=== PATIENT | male | born 1960 | race Caucasian/White ===

== ENCOUNTER 2021-08-31 10:19 | Outpatient (REF) | payer MEDICARE, SELFPAY ==
[2021-08-31 11:31] LABS: MANUAL DIFF FLAG NO
[2021-08-31 11:47] LABS: Basophils Percent Auto 0.7 % (0-2); Eosinophils Absolute Auto 0.2 X10*3/uL (0.0-0.4); Eosinophils Percent Auto 2.8 % (0-4); Hematocrit 42.3 % (42.0-52.0); Hemoglobin 15.2 g/dl (14.0-18.0); Imm Gran Abs Auto 0.02 X10*3/uL (0.00-0.03); Imm Gran Pct Auto 0.3 % (0.0-0.4); Lymphocytes Absolute Auto 1.9 X10*3/uL (1.2-4.9); Lymphocytes Percent Auto 33.2 % (20-40); Mean Corpuscular HGB Conc 35.9 g/dl (31.0-36.0); Mean Corpuscular Hemoglobin 32.2 pg (27.0-33.0); Mean Corpuscular Volume 89.6 fL (80.0-98.0); Mean Platelet Volume 9.2 fL (9.4-12.4); Monocytes Absolute Auto 0.5 X10*3/uL (0.1-1.2); Neutrophils Absolute Auto 3.2 x10*3/uL (2.0-8.3); Platelet Count 181 X10*3/uL (160-400); Red Blood Count 4.72 X10*6/uL (4.60-5.80); White Blood Count 5.8 X10*3/uL (4.8-10.8)
[2021-08-31 11:47] LABS: Appearance Urine CLEAR; Color Urine YELLOW; Glucose Urine UA NEG (NEG); Leukocyte Esterase Urine NEG (NEG); Nitrite Urine NEG (NEG); PH 5.5 (5.0-8.0); Specific Gravity - Urine >= 1.030 (1.005-1.025); UACC Culture Trigger NO; Urine Blood NEG (NEG); Urine Ketones 5 MG/DL (NEG); Urine Protein 1+ MG/DL (NEG-TRACE)
[2021-08-31 12:05] LABS: Alanine Aminotransferase 31 U/L (0-40); Albumin Level 4.6 g/dL (3.5-5.0); Alkaline Phosphatase 128 U/L (39-117); Anion Gap 17 (12-20); Aspartate Amino Transferase 84 U/L (5-37); Blood Urea Nitrogen 12 mg/dL (9-16); Calcium 9.1 mg/dL (8.4-10.2); Carbon Dioxide 25 mmol/L (22-29); Chloride 103 mmol/L (96-108); Cholesterol 222 mg/dL; Estimated Glomerular Filt Rate > 60; Glucose Fasting 91 mg/dL (60-99); HDL Cholesterol 73 mg/dL; LDL Cholesterol Calculated 83 mg/dl; Potassium 3.8 mmol/L (3.3-5.1); Sodium 141 mmol/L (135-145); Total Protein 8.1 g/dL (6.5-8.0); Triglycerides 331 mg/dL
[2021-08-31 12:29] LABS: Prostate Specific Antigen Scr < 0.05 ng/mL (<0.05-4.0); TSH reflex Free T4 0.79 uIU/mL (0.32-4.0)
[2021-08-31 12:53] LABS: Calcium Oxalate Crystals Urine TRACE /LPF; RBC Urine 0 /HPF (0); WBC Urine 0 /HPF (0-4)
== END 2021-08-31 10:20 | disposition home or self-care (01) ==
LOC: HO.HMGCLDS 10:19
PROVIDERS: PCP Nurse Practitioner Family; Visit Provider Nurse Practitioner Family
DX: Z12.5 Encounter for screening for malignant neoplasm of prostate (principal); I10 Essential (primary) hypertension; F17.200 Nicotine dependence, unspecified, uncomplicated; Z90.79 Acquired absence of other genital organ(s)
CPT/HCPCS: 36415; 80053; 80061; 81001; 84153; 84443; 85025

== ENCOUNTER 2021-09-14 12:46 | Outpatient (REF) | payer MEDICARE, SELFPAY ==
--- NOTE | ~2021-09-14 | XR_ITS ---
EXAMINATION: XR LUMBOSACRAL SPINE CLINICAL INFORMATION: Dorsalgia COMPARISON: None TECHNIQUE: Three views of the lumbosacral spine. FINDINGS: Status post fusion with anterior orthopedic plate and screw and disc spacer at L5-S1. Hardware intact. 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 Mild dextroscoliosis thoracolumbar spine. [id number] multilevel degenerative spondylosis of disc height narrowing and vertebral endplate spurs and facet joint arthrosis. There is no acute osseous acute abnormality. No acute fracture. Heavy vascular calcification of aorta without evidence for aneurysm. XR/XR lumbar spine 2-3V IMPRESSION: No acute osseous abnormality of the spine. Multilevel degenerative spondylosis. Status post fusion L5-S1.
== END 2021-09-14 12:47 | disposition home or self-care (01) ==
LOC: HO.HMGCX 12:46
PROVIDERS: PCP Nurse Practitioner Family; Visit Provider Nurse Practitioner Family
DX: M54.9 Dorsalgia, unspecified (principal); M79.609 Pain in unspecified limb
CPT/HCPCS: 72100

== ENCOUNTER 2021-10-13 08:45 | Outpatient (REF) | payer MEDICARE, SELFPAY ==
--- NOTE | ~2021-10-13 | US_ITS ---
EXAMINATION: US ABDOMEN COMPLETE CLINICAL INFORMATION: Elevated liver enzymes. COMPARISON: None TECHNIQUE: Real-time imaging of the abdominal viscera. FINDINGS: PANCREAS: Normal. ABDOMINAL AORTA: There is evidence of atherosclerotic disease. The abdominal aorta is normal in caliber. INFERIOR VENA CAVA: Visualized portions are normal. LIVER: Normal. The liver is normal in size. The liver contour is normal. Parenchymal echogenicity is normal. No focal hepatic lesion. There is no intrahepatic biliary duct dilatation seen. GALLBLADDER: Normal. The gallbladder is physiologically distended without evidence of stones, sludge, polyps, wall thickening or pericholecystic fluid. COMMON BILE DUCT: Normal in caliber measuring 0.6 cm in diameter. RIGHT KIDNEY: Normal. No hydronephrosis. No renal calculi or focal parenchymal lesions. The kidney measures 11.7 cm in maximum dimension. LEFT KIDNEY: Normal. No hydronephrosis. No renal calculi or focal parenchymal lesions. The kidney measures 11.5 cm in maximum dimension. SPLEEN: Normal. The spleen measures 8.7 cm in maximum dimension. FREE FLUID: None. US/US abdomen complete IMPRESSION: Unremarkable exam.
[2021-10-13 11:28] LABS: Appearance Urine CLEAR; Color Urine YELLOW; Glucose Urine UA NEG (NEG); Leukocyte Esterase Urine NEG (NEG); Nitrite Urine NEG (NEG); PH 8.5 (5.0-8.0); Urine Blood NEG (NEG); Urine Ketones NEG (NEG); Urine Protein NEG (NEG-TRACE)
[2021-10-13 11:49] LABS: Gamma Glutamyl Transpeptidase 305 U/L (11-51)
[2021-10-13 12:03] LABS: HBc Num1 0.04 S/CO (0.00-0.79); HBsAGNum1 0.19 S/CO (0.00-0.99); Hepatitis B Core Antibody Nonreactive (Nonreactive); Hepatitis B Surface Antigen Negative (Negative); ~HepC Num1 10.33 S/CO (0.00-0.79); ~Hepatitis B Surface Antibody NONREACTIVE (Nonreactive); ~Hepatitis C Antibody Reactive (Nonreactive)
[2021-10-14 08:19] LABS: Hepatitis A Antibody IgM 0.13 Index (0-0.79); ~Hepatitis A Antibody IgM Nonreactive (Nonreactive)
== END 2021-10-13 08:46 | disposition home or self-care (01) ==
LOC: HO.HMGCX 08:45
PROVIDERS: PCP Nurse Practitioner Family; Visit Provider Nurse Practitioner Family
DX: R74.8 Abnormal levels of other serum enzymes (principal); I10 Essential (primary) hypertension
CPT/HCPCS: 36415; 76700; 81003; 82977; 86704; 86706; 86709; 86803; 87340

== ENCOUNTER 2021-10-22 14:16 | Outpatient (REF) | payer MEDICARE, SELFPAY ==
[2021-10-25 14:31] LABS: HCV Log PCR <1.18 NOT DETECTED Log IU/mL (NOT DETECTED); HepC Viral Load <15 NOT DETECTED IU/mL (NOT DETECTED)
== END 2021-10-22 14:17 | disposition home or self-care (01) ==
LOC: HO.HMGCLDS 14:16
PROVIDERS: PCP Nurse Practitioner Family; Visit Provider Nurse Practitioner Family
DX: B19.20 Unspecified viral hepatitis C without hepatic coma (principal)
CPT/HCPCS: 36415; 87522

== ENCOUNTER 2022-04-12 08:22 | Outpatient (REF) | payer MEDICARE, SELFPAY ==
[2022-04-12 11:20] LABS: MANUAL DIFF FLAG NO
[2022-04-12 11:36] LABS: Basophils Percent Auto 0.7 % (0-2); Eosinophils Absolute Auto 0.2 X10*3/uL (0.0-0.4); Hematocrit 37.1 % (42.0-52.0); Hemoglobin 12.4 g/dl (14.0-18.0); Imm Gran Abs Auto 0.02 X10*3/uL (0.00-0.03); Imm Gran Pct Auto 0.4 % (0.0-0.4); Lymphocytes Absolute Auto 1.5 X10*3/uL (1.2-4.9); Lymphocytes Percent Auto 34.4 % (20-40); Mean Corpuscular HGB Conc 33.4 g/dl (31.0-36.0); Mean Corpuscular Hemoglobin 31.8 pg (27.0-33.0); Mean Corpuscular Volume 95.1 fL (80.0-98.0); Mean Platelet Volume 9.9 fL (9.4-12.4); Monocytes Absolute Auto 0.5 X10*3/uL (0.1-1.2); Monocytes Percent Auto 11.6 % (2-11); Neutrophils Absolute Auto 2.2 x10*3/uL (2.0-8.3); Neutrophils Percent Auto 48.9 % (45-73); Platelet Count 160 X10*3/uL (160-400); Red Cell Distribution Width 13.2 % (11.0-16.0); White Blood Count 4.5 X10*3/uL (4.8-10.8)
[2022-04-12 12:13] LABS: Appearance Urine Turbid; Color Urine Dark Yellow; Glucose Urine UA Negative (Negative); Leukocyte Esterase Urine Trace (Negative); Nitrite Urine Negative (Negative); PH 5.5 (5.0-9.0); Specific Gravity - Urine >= 1.030 (1.005-1.025); UMIC TRIGGER UACC YES; Urine Blood Negative (Negative); Urine Ketones Trace mg/dL (Negative); Urine Protein Trace mg/dL (Neg-Trace)
[2022-04-12 12:21] LABS: Alanine Aminotransferase 20 U/L (0-40); Albumin Level 4.1 g/dL (3.5-5.0); Alkaline Phosphatase 139 U/L (39-117); Anion Gap 15 (12-20); Aspartate Amino Transferase 29 U/L (5-37); Bacteria Urine None Seen (None Seen); Bilirubin Total 0.6 mg/dL (0.0-1.0); Blood Urea Nitrogen 11 mg/dL (9-16); Calcium 9.4 mg/dL (8.4-10.2); Carbon Dioxide 29 mmol/L (22-29); Chloride 105 mmol/L (96-108); Cholesterol 153 mg/dL; Estimated Glomerular Filt Rate > 60; Glucose Fasting 106 mg/dL (60-99); HDL Cholesterol 74 mg/dL; Hyaline Casts Urine 0-2 /LPF (0-2); LDL Cholesterol Calculated 67 mg/dl; Potassium 4.5 mmol/L (3.3-5.1); RBC Urine 0-2 /HPF (0-2); Sodium 144 mmol/L (135-145); Squamous Epithelial Cell Urine 0-2 /HPF (0-2); TSH reflex Free T4 0.32 uIU/mL (0.32-4.0); Total Protein 7.2 g/dL (6.5-8.0); Triglycerides 64 mg/dL; WBC Urine 0-5 /HPF (0-5)
== END 2022-04-12 08:23 | disposition home or self-care (01) ==
LOC: HO.HMGCLDS 08:22
PROVIDERS: PCP Nurse Practitioner Family; Visit Provider Nurse Practitioner Family
DX: I10 Essential (primary) hypertension (principal)
CPT/HCPCS: 36415; 80053; 80061; 81001; 81003; 84443; 85025

== ENCOUNTER → 2022-05-12 08:55 | Outpatient (BNVA) | payer MEDICARE, SELFPAY | PROVIDERS: PCP Nurse Practitioner Family; Visit Provider Orthopaedic Surgery | DX: M72.0 Palmar fascial fibromatosis [Dupuytren] (principal) | CPT/HCPCS: 99202 ==

== ENCOUNTER 2022-05-12 11:38 | Outpatient (REF) | payer MEDICARE, SELFPAY ==
[2022-05-12 12:25] LABS: MANUAL DIFF FLAG NO
[2022-05-12 13:49] LABS: Basophils Absolute Auto 0.1 X10*3/uL (0.0-0.2); Basophils Percent Auto 0.9 % (0-2); Eosinophils Absolute Auto 0.1 X10*3/uL (0.0-0.4); Eosinophils Percent Auto 2.2 % (0-4); Hematocrit 39.9 % (42.0-52.0); Hemoglobin 12.9 g/dl (14.0-18.0); Imm Gran Abs Auto 0.01 X10*3/uL (0.00-0.03); Imm Gran Pct Auto 0.2 % (0.0-0.4); Immature Retic Fraction 11.1 % (2.3-13.4); Lymphocytes Absolute Auto 1.8 X10*3/uL (1.2-4.9); Lymphocytes Percent Auto 32.9 % (20-40); Mean Corpuscular HGB Conc 32.3 g/dl (31.0-36.0); Mean Corpuscular Hemoglobin 30.7 pg (27.0-33.0); Mean Platelet Volume 10.7 fL (9.4-12.4); Monocytes Absolute Auto 0.5 X10*3/uL (0.1-1.2); Monocytes Percent Auto 8.6 % (2-11); Neutrophils Percent Auto 55.2 % (45-73); Platelet Count 212 X10*3/uL (160-400); Red Cell Distribution Width 12.4 % (11.0-16.0); Retic HGB Equivalent 34.7 pg (30.0-35.0); Reticulocyte Percent 1.6 % (0.5-1.8); Reticulocytes Absolute 0.066 X10*6/uL (0.026-0.095); White Blood Count 5.4 X10*3/uL (4.8-10.8)
[2022-05-12 14:16] LABS: Gamma Glutamyl Transpeptidase 79 U/L (11-51); Iron 86 mcg/dL (45-160); Percent Iron Saturation 28 % (15-50); Total Iron Binding Capacity 308 mcg/dL (228-428); Unsaturated Iron Binding 222 ug/dL
[2022-05-12 14:49] LABS: Ferritin 78 ng/mL (20-250); Folate 13.2 ng/mL (> or = 4.0); Vitamin B12 347 pg/mL (200-900)
[2022-05-19 20:48] LABS: Alk.Phos Iso. Macrohepatic 0 % (<=0); Alk.Phos Isoenzymes Bone 41 % (28-66); Alk.Phos Isoenzymes Intest 22 % (1-24); Alk.Phos Isoenzymes Liver 37 % (25-69); Alk.Phos Isoenzymes Placental 0 % (<=0); Alk.Phos Isoenzymes Total 70 U/L (35-144)
== END 2022-05-12 11:39 | disposition home or self-care (01) ==
LOC: HO.HMGCLDS 11:38
PROVIDERS: PCP Nurse Practitioner Family; Visit Provider Nurse Practitioner Family
DX: D64.9 Anemia, unspecified (principal); R74.8 Abnormal levels of other serum enzymes
CPT/HCPCS: 36415; 82607; 82728; 82746; 82977; 83540; 84080; 85025; 85045

== ENCOUNTER → 2022-05-28 11:23 | Outpatient (BNVA) | payer MEDICARE, SELFPAY | PROVIDERS: PCP Nurse Practitioner Family; Visit Provider Physician Assistant | DX: S60.10XA Contusion of unspecified finger with damage to nail, initial encounter (principal) | CPT/HCPCS: 99212 ==

== ENCOUNTER 2022-05-31 06:05 | Day surgery (SDC) | payer MEDICARE, SELFPAY ==
[2022-05-25 15:27] VITALS: BMI 21.4
[2022-05-31] VITALS (7 sets, daily range): BP systolic 102–119; BP diastolic 58–77; PULSE 60–79; RESP 16; TEMP 36.5–37.2; O2SAT 90–96
[2022-05-31] MEDS: Lactated Ringers 1,000 ML 80 ML IVCONT (06:52)
--- NOTE | 2022-05-31 07:20 | HO.ANESPROP2 ---
HPI - Anesthesia Eval Consult details Narrative: dupuytrens PMFSH Active Problems Active Problems: All Active Problems (Updated 05/28/22 @ 12:14 by Ginny Castillo PA-C) Subungual hematoma of finger of left hand (Acute) HTN (hypertension) (Acute) Smoker (Acute) Elevated alkaline phosphatase level (Acute) Elevated liver enzymes (Acute) Pain of back and lower extremity (Acute) Hepatitis C (Acute) ETOH abuse (Acute) Anemia (Acute) Dupuytren contracture (Acute) Dupuytren's contracture of right hand (Acute) Dupuytren's contracture of left hand (Acute) H/O prostatectomy (Acute) Past Medical History Medical History Alcoholic peripheral neuropathy Elevated cholesterol Fusion of lumbar spine Hepatitis C HTN (hypertension) Mild ascending aorta dilatation Family History Family history of problems with anesthesia: No Surgical History Surgical History H/O prostatectomy History of lumbar fusion History of Problems with Anesthesia: No Social History Social History Housing: House Patient Tobacco Use Status: Never used Tobacco Cigarette Packs Per Day: 1 Cigarettes Per Day: 20 e-Cigarette/Vaping Use: Never Used Second Hand Smoke Exposure: No Use of substances other than those prescribed or required for medical reasons: Yes Substance Use Frequency: Daily Are you DNR?: No Advance Directives: No Advance Directives Information Provided: Yes Advance Directives on File: No service: No Current occupational status: retired Hearing needs: Yes (hearing aides ) Vision needs: Yes (pt wears glasses ) Meds Allergies Allergy/AdvReac Type Severity Reaction Status Date / Time No Known Allergies Allergy Verified 05/28/22 11:33 Active Medications: Current Medications Lidocaine HCl 8.11 ml/Epinephrine 0.08 mg/ Sodium Bicarbonate 0.405 meq/ IV Miscellaneous Supplies 9 mls @ 0 mls/hr INFILTRATI ONCE ONE Stop: 05/31/22 10:29 Lactated Ringer's (Lr) 1,000 mls @ 80 mls/hr IVCONT .[id number] ESTELLE Last Admin: 05/31/22 06:52 Dose: 80 mls/hr Home Medications Medication Instructions Recorded Confirmed Last Taken Type fluticasone propionate 50 1 spray intranasal DAILY PRN Nasal 05/28/21 05/25/22 Unknown History mcg/actuation nasal Congestion spray,suspension (Flonase Allergy Relief) magnesium citrate (Citrate of 150 ml PO DAILY 05/12/22 Unknown History Magnesia oral) Exam Exam Date and Time: May 31, 2022 0720 Height,Weight and Vital Signs: Height 6 ft 3 in Weight 77.564 kg Last Vital Signs Temp 97.7 F 05/31/22 06:50 Pulse 60 05/31/22 06:50 Resp 16 05/31/22 06:50 BP 119/77 05/31/22 06:50 Pulse Ox 96 05/31/22 06:50 O2 Del Method Room Air 05/31/22 06:50 Airway Mallampati Class: II TM Dist: >3cm Neck ROM: Limited Heart: Qrrr Lungs: cta Assessment and Plan Assessment Anesthesia Assessment: Anesthesia Plan Discussed, Smoking Cess. Discussed and Chart Reviewed Final Anesthetic Review Family History of Problems with Anesthesia: No History of Problems with Anesthesia: No NPO: Yes ASA Class: III Final Preanesthetic Review: No Changes in Pt Med Stat, Meds/Allgs Chart Reviewed, Consent Obtained/Reviewed and Anes Risks/Benef Reviewed Patient Risk: Intermediate Procedure Risk: Low Anesthetic Plan Anesthetic Plan: GA and Regional Block Disposition: Standard PACU
--- NOTE | 2022-05-31 08:04 | P.OP_ITS ---
Operative Note Operative Note Date of Service: 05/31/22 Narrative: Preop diagnosis: 1. right small finger Dupuytren's contracture 2. Right ring finger Dupuytren's contracture Postop diagnosis: Same Procedure: 1. Right small finger Partial Dupuytren's fasciectomy 2. Right ring finger partial Dupuytren's fasciectomy 3. Right small finger radial digital nerve neurolysis 4. Right small finger ulnar digital nerve neurolysis 5. Right ring finger ulnar digital nerve neurolysis Surgeon: Taryn Cornejo MD Anesthesia: General anesthesia plus regional block Findings: Dupuytren's cords extending from the palm to the small finger at about the D IP joint, and in the ring finger to the ulnar aspect of the digit at about the D IP joint. The contractures were corrected to full extension in both the small and ring fingers Implants: None Tourniquet time: tourniquet time #1 123 minutes, tourniquet time #2 of 43 minutes with 25 minutes of down time in between. EBL: 5.0 ml Specimen: Dupuytren's cords from each the right small finger and the right ring finger were sent for histopathology Drains: None Complications: None Disposition: Brought to the recovery room in stable condition Plan: Follow-up in 10-14 days for wound check, suture removal and to check pathology OT appt on day of f/u to make a custom night spint and to begin OT Indications: The patient is a 62 year old man with Dupuytren's contractures involving the right ring and small fingers . The risks and benefits of operative treatment, including but not limited to risk of damage to blood vessels, nerves, tendons, infection, recurrence, persistent pain or numbness, incomplete resolution of preoperative symptoms, or need for further surgery were discussed with the patient and they wished to proceed with surgery. Procedure: Once consent was obtained patient was brought back to the operating suite and placed in the operating table in a supine position. A regional block was performed by the anesthesia team. Perioperative antibiotics and anesthesia was administered by the anesthesia team. A tourniquet was applied to the proximal aspect of the right upper extremity and the limb was prepped and draped in a standard surgical fashion. The limb was elevated exsanguinated with Esmarch bandage and the tourniquet inflated to 250 mm of mercury for a total tourniquet time of 123 minutes plus 43 minutes. I made a Braulio type incision extending along the Dupuytren's cord from the mid palm to the DIP flexion crease of the right small finger. The Incision was made with a 15. Blade through the skin the subcutaneous tissues. I then carefully dissected down to the level of the Dupuytren's cord beginning at the proximal aspect of the incision. This was done using tenotomy and iris scissors. Care was taken to protect the nearby neurovascular structures. The Dupuytren's cord was cut at its proximal aspect using tenotomy scissors. It was then grasped with an Allis clamp. The Dupuytren's cord was then carefully dissected free in a proximal to distal direction using tenotomy scissors and again taking care to protect the nearby neurovascular structures. at about the A1 oriana level the cord divided into 2 cords extending distally. The ulnar cord extended along the ulnar border of the digit to about the D IP flexion crease. The radial cord extended to just past the PIP joint on the radial side of the digit. Great care was taken as a neurolysis was performed for each the ulnar digital nerve and then for the radial digital nerve, dissecting the neurovascular bundles free from each of these Dupuytren's cords. This was pe rformed using tenotomy and iris scissors. The cords were then dissected free from the skin bone and flexor tendon sheath and removed from the digit and placed on the back table to be sent for histopathology. A small finger contracture was corrected to full extension at the MCP PIP and D IP joints. My attention was then turned to the right ring finger contracture. Braulio is incision was made over the A1 oriana area distally to the D IP flexion crease. Care was taken to maintain and skin bridge between that incision in the incision that was made for the small finger. The proximal aspect of the cord was carefully dissected free from the surrounding tissues in the palm using the proximal aspect of the incision that was utilized to access the cord to the small finger. Care was taken to protect the neurovascular structures. The cord was cut free in the palm and an Allis clamp was applied to maintain tension. I then proceeded in a proximal to distal direction freeing up the cord from the surrounding tissues. This progressed beneath the skin bridge in the palm. At this point the tourniquet was deflated at 123 minutes. We allowed for a down time of 25 minutes. During this time the wound was copiously irrigated with normal saline and hemostasis obtained with a brief period of local pressure. The skin edges of the Brunners incision to the small finger were then reapp roximated using 4-0 and 5 0 Prolene suture material. after a 25 minute down time, the limb was elevated and exsanguinated with an Esmarch bandage and the tourniquet reinflated for a 2nd tourniquet time of 43 minutes. This cord primarily ran along the ulnar aspect of the ring finger to the D IP joint. A neurolysis of the ulnar digital nerve was carefully performed, dissecting the Dupuytren's cord from about the digital neurovascular structures and freeing them up in a proximal to distal direction. The ulnar digital nerve and vessel were protected while the rest of the cord was dissected free from the skin, bone and flexor tendon sheath. The cord was then removed and placed on the back table to be sent for histopathology. The ring finger contracture was corrected to full extension at the MCP, PIP and D IP joints. The tourniquet was again deflated and hemostasis obtained with a brief period of local pressure. The wound was copiously irrigated with normal saline. The skin edges were reapproximated with 5-0 Prolene suture. The wounds were infiltrated with some 0.5% plain ropivacaine for postop pain control and a sterile dressing and volar splint holding the small and ring fingers in extension was applied. The patient appears to have tolerated the procedure well and with no complications. All digits were well vascularized conclusion of the case.
--- NOTE | 2022-05-31 08:04 | MHC.SHP ---
Pre-Procedural Eval Section A Date of Service: 05/31/22 The patient is an INPATIENT: No Changes since office visit: No Cold of Flu in the past 2 weeks, No New Medical Problems, No Changes in Medication and No Patient answered all questions The History & Physical has been completed within 30 days and I have reviewed it.: Yes Section B Chief Complaint: Palmar fascial fibromatosis [Dupuytren] Allergies: Allergies Allergy/AdvReac Type Severity Reaction Status Date / Time No Known Allergies Allergy Verified 05/28/22 11:33 Plan I have reviewed the history and physical and performed a pertinent physical examination on my patient. No changes have occurred unless specified. Time Spent With Patient Time: Total time managing care of this patient today ____ minutes.
== END 2022-05-31 15:08 | disposition home or self-care (01) ==
PROVIDERS: PCP Nurse Practitioner Family; Visit Provider Orthopaedic Surgery
PROC: (CPT 26045; principal; 2022-05-31 07:30)
DX: M72.0 Palmar fascial fibromatosis [Dupuytren] (principal); R20.2 Paresthesia of skin; G62.1 Alcoholic polyneuropathy; F10.11 Alcohol abuse, in remission; I10 Essential (primary) hypertension; B19.20 Unspecified viral hepatitis C without hepatic coma; E78.00 Pure hypercholesterolemia, unspecified; Z79.899 Other long term (current) drug therapy; Z87.891 Personal history of nicotine dependence
CPT/HCPCS: 26123; 64702 ×2; 26125; 88304; J0171; J0690; J1100; J2405; J2795

== ENCOUNTER → 2022-06-09 13:45 | Outpatient (BNVA) | payer MEDICARE, SELFPAY | PROVIDERS: PCP Nurse Practitioner Family; Visit Provider Orthopaedic Surgery | DX: M72.0 Palmar fascial fibromatosis [Dupuytren] (principal); R20.0 Anesthesia of skin; S60.112D Contusion of left thumb with damage to nail, subsequent encounter; W22.8XXD Striking against or struck by other objects, subsequent encounter | CPT/HCPCS: 99212 ==

== ENCOUNTER → 2022-06-15 08:26 | Outpatient (BNVA) | payer MEDICARE, SELFPAY | PROVIDERS: PCP Nurse Practitioner Family; Visit Provider Orthopaedic Surgery | DX: Z48.02 Encounter for removal of sutures (principal); M72.0 Palmar fascial fibromatosis [Dupuytren] | CPT/HCPCS: 99212 ==

== ENCOUNTER 2022-06-25 08:00 | Outpatient (RCR) | payer MEDICARE, SELFPAY ==
--- NOTE | 2022-06-09 16:27 | MHC.OT.EP ---
[address] [phone] Occupational Therapy Plan of Care Patient Name: Tonny French Date of Evaluation: 06/09/22 Diagnosis: s/p right small and ring finger Dupuytrens release Pain Location: RIght palm at base of 4th and 5th digit 4/10 Pain Score: 4 Pain Scale Used: Numeric (0 - 10) Aggravating Factors: Has not been using R hand since surgery Alleviating Factors: Rest Assessment: Pt is a 62 y/o male referred to OT s/p right 4th and 5th digit Dupuytren's release on 05/31/22. Pt had sutures removed today, he is healing well and steri strips are in place. Custom digit extension splint was fabricated for night time use. Pt. was educated in indications, wearing schedule and skin checks. He is somewhat concerned about his co-pay and would like to come one time a week. We reviewed tendon glides and digit/hand AROM exercises for home. He demonstrated good understanding of exercises prior to leaving. [employer] strength was not tested this date. A 36.4% limitation is noted per the Quick DASH assessment. Pt would benefit from skilled OT 1x/wk for 4 weeks for ROM, scar management, and return to PLOF. Frequency and Duration: The patient will be seen 1x/wk for 4 weeks Short Term Goals: IND with custom orthosis wear IND with ROM HEP Decrease pain to <2/10 Full composite fist Alf Goals: IND with scar management IND with progression of HEP Pain free w/ BADL's/IADL's Quick DASH <15% Treatment Plan: Therapeutic Exercise Therapeutic Activity Home Exercise Program Splinting Patient Education Edema Control Ultrasound MHP Soft Tissue Mobilization Per patient request, 1x/wk for 4 weeks Electronically Signed By: Shelley Reyes, OTR/L Please Sign and return to therapist. Thank you once again for your referral.
== END 2022-06-29 12:54 | disposition home or self-care (01) ==
LOC: HO.OT 08:00
PROVIDERS: PCP Nurse Practitioner Family; Visit Provider Orthopaedic Surgery
DX: M72.0 Palmar fascial fibromatosis [Dupuytren] (principal)
CPT/HCPCS: 29130; 97110; 97165; 97760

== ENCOUNTER → 2022-06-29 12:05 | Outpatient (BNVA) | payer MEDICARE, SELFPAY | PROVIDERS: PCP Nurse Practitioner Family; Visit Provider Orthopaedic Surgery | DX: M72.0 Palmar fascial fibromatosis [Dupuytren] (principal) | CPT/HCPCS: 99212 ==

== ENCOUNTER 2022-07-10 13:04 | Outpatient (REF) | payer MEDICARE, SELFPAY ==
[2022-07-11 07:38] LABS: FIT Int Ctl YES; FIT1 NEGATIVE (NEGATIVE); FIT2 NEGATIVE (NEGATIVE)
== END 2022-07-10 13:05 | disposition home or self-care (01) ==
LOC: HO.HMGCLNP 13:04
PROVIDERS: PCP Nurse Practitioner Family; Visit Provider Nurse Practitioner Family
DX: D64.9 Anemia, unspecified (principal)
CPT/HCPCS: 82274

== ENCOUNTER 2022-08-06 07:58 | Outpatient (REF) | payer MEDICARE, SELFPAY ==
[2022-08-06 11:24] LABS: MANUAL DIFF FLAG NO
[2022-08-06 11:57] LABS: Basophils Absolute Auto 0.1 X10*3/uL (0.0-0.2); Eosinophils Absolute Auto 0.2 X10*3/uL (0.0-0.4); Eosinophils Percent Auto 3.9 % (0-4); Hematocrit 41.1 % (42.0-52.0); Hemoglobin 13.4 g/dl (14.0-18.0); Imm Gran Abs Auto 0.01 X10*3/uL (0.00-0.03); Imm Gran Pct Auto 0.2 % (0.0-0.4); Immature Retic Fraction 9.6 % (2.3-13.4); Lymphocytes Absolute Auto 1.9 X10*3/uL (1.2-4.9); Lymphocytes Percent Auto 36.3 % (20-40); Mean Corpuscular HGB Conc 32.6 g/dl (31.0-36.0); Mean Corpuscular Hemoglobin 29.7 pg (27.0-33.0); Mean Corpuscular Volume 91.1 fL (80.0-98.0); Mean Platelet Volume 10.2 fL (9.4-12.4); Monocytes Absolute Auto 0.4 X10*3/uL (0.1-1.2); Monocytes Percent Auto 8.5 % (2-11); Neutrophils Absolute Auto 2.6 x10*3/uL (2.0-8.3); Neutrophils Percent Auto 50.1 % (45-73); Platelet Count 222 X10*3/uL (160-400); Red Blood Count 4.51 X10*6/uL (4.60-5.80); Retic HGB Equivalent 35.4 pg (30.0-35.0); Reticulocyte Percent 1.3 % (0.5-1.8); Reticulocytes Absolute 0.057 X10*6/uL (0.026-0.095); White Blood Count 5.2 X10*3/uL (4.8-10.8)
[2022-08-06 11:59] LABS: Appearance Urine Clear; Color Urine Yellow; Glucose Urine UA Negative (Negative); Leukocyte Esterase Urine Negative (Negative); Nitrite Urine Negative (Negative); PH 7.5 (5.0-9.0); Urine Blood Negative (Negative); Urine Ketones Negative (Negative); Urine Protein Negative (Neg-Trace)
[2022-08-06 12:48] LABS: Alanine Aminotransferase 15 U/L (0-40); Albumin Level 4.4 g/dL (3.5-5.0); Alkaline Phosphatase 83 U/L (39-117); Anion Gap 14 (12-20); Aspartate Amino Transferase 20 U/L (5-37); Bilirubin Total 0.5 mg/dL (0.0-1.0); Blood Urea Nitrogen 14 mg/dL (9-16); Calcium 9.5 mg/dL (8.4-10.2); Carbon Dioxide 25 mmol/L (22-29); Chloride 107 mmol/L (96-108); Cholesterol 138 mg/dL; Estimated Glomerular Filt Rate > 60; Glucose Fasting 108 mg/dL (60-99); HDL Cholesterol 48 mg/dL; LDL Cholesterol Calculated 78 mg/dl; Potassium 4.2 mmol/L (3.3-5.1); Sodium 142 mmol/L (135-145); Total Protein 7.4 g/dL (6.5-8.0); Triglycerides 63 mg/dL
[2022-08-06 12:51] LABS: Prostate Specific Antigen Scr < 0.10 ng/mL (<0.05-4.0); TSH reflex Free T4 0.79 uIU/mL (0.32-4.0)
== END 2022-08-06 07:59 | disposition home or self-care (01) ==
LOC: HO.HMGCLDS 07:58
PROVIDERS: PCP Nurse Practitioner Family; Visit Provider Nurse Practitioner Family
DX: Z00.00 Encounter for general adult medical examination without abnormal findings (principal); D64.9 Anemia, unspecified; Z12.5 Encounter for screening for malignant neoplasm of prostate; E78.5 Hyperlipidemia, unspecified
CPT/HCPCS: 36415; 80053; 80061; 81003; 84153; 84443; 85025; 85045

== ENCOUNTER 2022-08-27 15:32 | Outpatient (REF) | payer MEDICARE, SELFPAY ==
--- NOTE | ~2022-08-27 | CT_ITS ---
EXAMINATION: CT LOW-DOSE SCREENING CHEST WITHOUT CONTRAST CLINICAL INFORMATION: History of smoking. COMPARISON: None TECHNIQUE: Multidetector volumetric noncontrast CT imaging of the chest was obtained using low-dose screening CT technique. Axial thin section 0.625 mm reformations in soft tissue and lung windows were obtained. Sagittal and coronal reformations were obtained. Axial MIP images were also created and reviewed. RECONSTRUCTED WIDTH: 1.25 mm x1.[address] examination was performed using dose optimization techniques as appropriate, variously including the following: *Automated exposure control *Adjustment of mA and/or kV according to patient size (this includes techniques or standardized protocols for targeted exams where dose is matched to indication/reason for exam; i.e. extremities or head) *Use of iterative reconstruction technique TOTAL EXAM DLP: 52 mGy-cm. CTDIvol: 1.28 mGy. FINDINGS: PULMONARY NODULES: No suspicious pulmonary nodule appreciated. 7 mm peripheral calcified right lower lobe granuloma (image 372, series 5). LUNGS: No effusion or pneumothorax. Central airways patent. MEDIASTINUM: No mediastinal adenopathy by size criteria. No obvious hilar adenopathy on this noncontrast study. CORONARY ARTERY CALCIFICATION: Moderate to severe. THYROID GLAND: Unremarkable to the extent seen. CARDIOVASCULAR STRUCTURES: Aorta and heart size normal. No pericardial effusion. CHEST WALL/AXILLA: Unremarkable. No evidence of axillary adenopathy by size criteria. UPPER ABDOMEN: Included portions of the solid organs in the upper abdomen appear unremarkable on noncontrast imaging. OSSEOUS STRUCTURES: No lytic or sclerotic bony lesion identified. Pseudarthroses at the posterolateral aspects of the left ninth and 10th ribs. CT/CT lung screening IMPRESSION: No suspicious lung nodule identified. Additional findings, as above. ASSESSMENT: Lung-RADS category 1: Negative RECOMMENDATION: Routine annual low-dose CT screening in 12 months.
== END 2022-08-27 15:33 | disposition home or self-care (01) ==
LOC: HO.CT 15:32
PROVIDERS: PCP Nurse Practitioner Family; Visit Provider Physician Assistant Medical
DX: Z12.2 Encounter for screening for malignant neoplasm of respiratory organs (principal); Z87.891 Personal history of nicotine dependence
CPT/HCPCS: 71271; G0296

== ENCOUNTER 2023-01-11 08:21 | Outpatient (AMB) | payer MEDICARE, SELFPAY ==
--- NOTE | 2023-01-11 08:25 | MHC.PC.OV ---
Vital Signs 01/11/23 08:28 Weight 158 lb BP 108/66 Blood Pressure Location Rt brachial Position Sitting Pulse 53 Pulse Source Pulse Oximeter Pulse Oximetry (%) 99 Oxygen Delivery Method Room Air Intake Visit Reasons: 6 month follow up Allergies No Known Allergies Allergy (Verified 01/11/23 08:28) Medication List - Last Reconciled 01/11/23 by SELENE Small amlodipine 10 mg PO DAILY 90 days atorvastatin 10 mg PO BEDTIME 90 days fluticasone propionate 50 mcg/actuation (Flonase Allergy Relief) 1 spray intranasal DAILY PRN ibuprofen 600 mg PO Q6-8H PRN magnesium citrate (Citrate of Magnesia oral) 150 mL PO DAILY multivitamin (Daily Multi-Vitamin tablet) 1 tab PO DAILY 90 days pregabalin 75 mg PO TID 30 days sertraline 100 mg PO DAILY 90 days sildenafil 50 mg PO DAILY PRN Tobacco use date assessed: 07/13/22 HPI 6 month follow up HPI Details HTN: Blood pressure is stable, managed with amlodipine 10mg. Will order labs. Denies chest pain, shortness of breath, headache, dizziness, and blurred vision. Pt c/o lower back pain. He reports some radicular symptoms to his RLE. Denies any signs of cauda equina. Will order XR. Pt reports weight loss. Pt's weight in July was 180 and today it is 158. Pt reports that he is eating normally but continues to lose weight. Will order labs and chest XR. Pt has a hx of hep C though pt was treated. Pt is a smoker, goes for low-dose CTs. Pt reports having a previous colonoscopy, though unable to find report. Will order cologuard. Pt is going to see a specialist for an oral lesion that was found by his dentist. [facility] Medical History Personal history of nicotine dependence Nicotine dependence, cigarettes, uncomplicated Hepatitis C Elevated cholesterol HTN (hypertension) Mild ascending aorta dilatation Alcoholic peripheral neuropathy Surgical History History of right inguinal hernia repair History of left knee surgery History of surgery on lower extremity History of shoulder surgery History of hand surgery History of prostatectomy History of lumbar fusion Family History Maternal Uncle Substance use disorder Social History Housing: House Patient Tobacco Use Status: Former Tobacco user Quit Date: jan 26 Years Smoked: (onset 23yo, 1ppd x 38yrs, 35pyh - quit 01/2022) e-Cigarette/Vaping Use: Never Used Second Hand Smoke Exposure: No service: No Current occupational status: retired Hearing needs: Yes (hearing aides ) Vision needs: Yes (pt wears glasses ) Questionnaire Thrive Questionnaire Date Thrive assessed: 05/28/21 ARLENE-7 AMB Questionnaire ARLENE-7 Date ARLENE - 7 assessed: 05/28/21 Source: Developed by Drs. Horacio Yoder, Verona Adamson, Sawyer Garay and colleagues, with an educational dasia from [employer]. Review of Systems Const Reports as per HPI Physical exam (Primary Care) Vital Signs: Last Vital Signs Pulse 53 01/11/23 08:28 BP 108/66 01/11/23 08:28 Pulse Ox 99 01/11/23 08:28 Oxygen Delivery Method Room Air 01/11/23 08:28 Tobacco/Smoking Status: Tobacco use Status Tobacco use date assessed 07/13/22 01/11/23 08:31 Patient Tobacco Use Status Former Tobacco user 01/11/23 08:31 e-Cigarette/Vaping Use Never Used 01/11/23 08:31 Thrive Assessment: Date of Thrive Assessment Date Thrive assessed 05/28/21 01/11/23 08:31 Const Other: skinny stature General: cooperative Orientation/consciousness: patient oriented x3 HENMT Other: right bottom of tongue with white lesion Resp Effort & Inspection: normal respiratory effort Auscultation: clear to auscultation bilaterally and diminished lung sounds Cardio Other: difficult to auscultate Rate: regular rate Rhythm: regular rhythm Heart sounds: S1 normal heart sound present and S2 normal heart sound present Back/Spine/Pelvis Other: increase in lower transverse back pain with RLE raises, no radicular symptoms or pain with heel and toe walking Neuro General: patient oriented x3 Psych Appearance: grossly normal Mental Status: mental status grossly normal Speech and movement: Normal speech and movement present Affect: normal affect Attitude: cooperative Thought process: Normal thought process present Thought content: Normal thought content present Insight: Good insight present (Psych) Judgement: Good judgement present (Psych) Assessment and Plan Assessment & Plan (1) HTN (hypertension): Code(s): I10 - Essential (primary) hypertension Plan: Stable, labs ordered (2) Lower back pain: Code(s): M54.50 - Low back pain, unspecified Plan: XR ordered, likely arthritis (3) Screening for colon cancer: Code(s): Z12.11 - Encounter for screening for malignant neoplasm of colon Plan: Cologuard ordered (4) Unintentional weight loss: Code(s): R63.4 - Abnormal weight loss Plan: Labs, chest XR Plan The patient agreed to the use of a biomedical engineering technician for this encounter. Scribed for DANYEL Hdez-BC by Estrellita Mercedes biomedical engineering technician, on 01/11/2023 at 08:40 EST. Orders: Orders XR lumbar spine 2-3V Today M54.50 - Low back pain, unspecified C Reactive Protein Today Z12.11 - Encounter for screening for malignant neoplasm of colon HIV Ab/Ag Today R63.4 - Abnormal weight loss Hepatitis C Viral Load Today R63.4 - Abnormal weight loss Hepatitis A,B,C Profile Today R63.4 - Abnormal weight loss Complete Blood Count Auto Diff Today I10 - Essential (primary) hypertension Comprehensive Cushing. Panel Fast Today I10 - Essential (primary) hypertension Lipid Panel Today I10 - Essential (primary) hypertension TSH reflex Free T4 Today I10 - Essential (primary) hypertension, R63.4 - Abnormal weight loss UA CC w/rflx Micro + Cult Today I10 - Essential (primary) hypertension, R63.4 - Abnormal weight loss Erythrocyte Sedimentation Rate Today R63.4 - Abnormal weight loss Referrals Cologuard Test Z12.11 - Encounter for screening for malignant neoplasm of colon, Z12.12 - Encounter for screening for malignant neoplasm of rectum Coding Level of Care Code Est Pt Level 3 (34788) Diagnoses HTN (hypertension) I10 Lower back pain M54.50 Screening for colon cancer Z12.11 Unintentional weight loss R63.4
[2023-01-11 08:28] VITALS: BP 108/66; PULSE 53; O2SAT 99
== END 2023-01-11 09:11 | disposition home or self-care (01) ==
PROVIDERS: Visit Provider Nurse Practitioner Family
DX: I10 Essential (primary) hypertension (principal); M54.50 Low back pain, unspecified; Z12.11 Encounter for screening for malignant neoplasm of colon; R63.4 Abnormal weight loss
CPT/HCPCS: 99213

== ENCOUNTER 2023-01-11 09:11 | Outpatient (REF) | payer MEDICARE, SELFPAY ==
--- NOTE | ~2023-01-11 | XR_ITS ---
EXAMINATION: XR LUMBOSACRAL SPINE CLINICAL INFORMATION: Low back pain COMPARISON: 08/15/2021 TECHNIQUE: Three views of the lumbosacral spine. FINDINGS: There is no interval change in position of hardware at the level of L5-S1 and mild multilevel degenerative changes with marginal spurring.. There is mild dextroscoliosis. Sacroiliac joints unremarkable. XR/XR lumbar spine 2-3V IMPRESSION: No interval change. Status post L5-S1 fusion
[2023-01-11 11:21] LABS: MANUAL DIFF FLAG NO
[2023-01-11 11:27] LABS: Appearance Urine Clear; Basophils Absolute Auto 0.1 X10*3/uL (0.0-0.2); Basophils Percent Auto 0.9 % (0-2); Color Urine Yellow; Eosinophils Absolute Auto 0.1 X10*3/uL (0.0-0.4); Eosinophils Percent Auto 2.3 % (0-4); Glucose Urine UA Negative (Negative); Hematocrit 43.2 % (42.0-52.0); Hemoglobin 14.4 g/dl (14.0-18.0); Imm Gran Abs Auto 0.01 X10*3/uL (0.00-0.03); Imm Gran Pct Auto 0.2 % (0.0-0.4); Immature Retic Fraction 3.8 % (2.3-13.4); Leukocyte Esterase Urine Negative (Negative); Lymphocytes Absolute Auto 1.6 X10*3/uL (1.2-4.9); Lymphocytes Percent Auto 28.6 % (20-40); Mean Corpuscular HGB Conc 33.3 g/dl (31.0-36.0); Mean Corpuscular Hemoglobin 29.4 pg (27.0-33.0); Mean Corpuscular Volume 88.3 fL (80.0-98.0); Mean Platelet Volume 10.6 fL (9.4-12.4); Monocytes Absolute Auto 0.4 X10*3/uL (0.1-1.2); Monocytes Percent Auto 7.5 % (2-11); Neutrophils Absolute Auto 3.5 x10*3/uL (2.0-8.3); Neutrophils Percent Auto 60.5 % (45-73); Nitrite Urine Negative (Negative); Platelet Count 222 X10*3/uL (160-400); Red Blood Count 4.89 X10*6/uL (4.60-5.80); Red Cell Distribution Width 13.2 % (11.0-16.0); Retic HGB Equivalent 34.4 pg (30.0-35.0); Reticulocyte Percent 0.9 % (0.5-1.8); Reticulocytes Absolute 0.044 X10*6/uL (0.026-0.095); Urine Blood Negative (Negative); Urine Ketones Negative (Negative); Urine Protein Negative (Neg-Trace); White Blood Count 5.7 X10*3/uL (4.8-10.8)
[2023-01-11 12:09] LABS: Alanine Aminotransferase 11 U/L (0-40); Albumin Level 4.5 g/dL (3.5-5.0); Alkaline Phosphatase 85 U/L (39-117); Anion Gap 12 (12-20); Aspartate Amino Transferase 16 U/L (5-37); Bilirubin Total 0.5 mg/dL (0.0-1.0); Blood Urea Nitrogen 15 mg/dL (9-16); C Reactive Protein < 0.04 mg/dL (< or = 0.50); Carbon Dioxide 32 mmol/L (22-29); Chloride 106 mmol/L (96-108); Cholesterol 124 mg/dL (<200); Estimated Glomerular Filt Rate > 60; Glucose Fasting 95 mg/dL (60-99); HDL Cholesterol 52 mg/dL (>40); LDL Cholesterol Calculated 62 mg/dL (<100); Potassium 4.8 mmol/L (3.3-5.1); Sodium 145 mmol/L (135-145); Total Protein 7.6 g/dL (6.5-8.0); Triglycerides 51 mg/dL (<150)
[2023-01-11 12:18] LABS: Erythrocyte Sedimentation Rate 5 MM/HR (0-15)
[2023-01-11 12:28] LABS: TSH reflex Free T4 0.35 uIU/mL (0.32-4.0)
[2023-01-11 12:38] LABS: HBc Num1 0.07 S/CO (0.00-0.79); HBsAGNum1 0.56 S/CO (0.00-0.99); HIV AB/AG Nonreactive (Nonreactive); HIV Num 1 0.06 S/CO (0.00-0.99); Hepatitis A Antibody IgM 0.19 Index (0-0.79); Hepatitis B Core Antibody Nonreactive (Nonreactive); Hepatitis B Surface Antigen Negative (Negative); ~HepC Num1 11.63 S/CO (0.00-0.79); ~Hepatitis A Antibody IgM Nonreactive (Nonreactive); ~Hepatitis B Surface Antibody NONREACTIVE (Nonreactive); ~Hepatitis C Antibody Reactive (Nonreactive)
[2023-01-13 12:48] LABS: HCV Log PCR <1.18 NOT DETECTED Log IU/mL (NOT DETECTED); HepC Viral Load <15 NOT DETECTED IU/mL (NOT DETECTED)
== END 2023-01-11 09:12 | disposition home or self-care (01) ==
LOC: HO.HMGCX 09:11
PROVIDERS: PCP Nurse Practitioner Family; Visit Provider Nurse Practitioner Family
DX: Z00.00 Encounter for general adult medical examination without abnormal findings (principal); M54.50 Low back pain, unspecified; R63.4 Abnormal weight loss; I10 Essential (primary) hypertension; D64.9 Anemia, unspecified; K14.8 Other diseases of tongue; F17.200 Nicotine dependence, unspecified, uncomplicated
CPT/HCPCS: 36415; 72100; 80053; 80061; 81003; 84443; 85025; 85045; 85652; 86140; 86704; 86706; 86709; 86803; 87340; 87389; 87522

== ENCOUNTER 2023-01-22 10:39 | Outpatient (REF) | payer MEDICARE, SELFPAY ==
[2023-01-22 13:25] LABS: MANUAL DIFF FLAG NO
[2023-01-22 13:32] LABS: Basophils Percent Auto 0.6 % (0-2); Eosinophils Absolute Auto 0.1 X10*3/uL (0.0-0.4); Eosinophils Percent Auto 2.1 % (0-4); Hemoglobin 13.3 g/dl (14.0-18.0); Imm Gran Abs Auto 0.01 X10*3/uL (0.00-0.03); Imm Gran Pct Auto 0.2 % (0.0-0.4); Lymphocytes Absolute Auto 1.6 X10*3/uL (1.2-4.9); Lymphocytes Percent Auto 33.8 % (20-40); Mean Corpuscular HGB Conc 33.3 g/dl (31.0-36.0); Mean Corpuscular Hemoglobin 29.8 pg (27.0-33.0); Mean Corpuscular Volume 89.5 fL (80.0-98.0); Mean Platelet Volume 10.4 fL (9.4-12.4); Monocytes Absolute Auto 0.4 X10*3/uL (0.1-1.2); Monocytes Percent Auto 7.9 % (2-11); Neutrophils Absolute Auto 2.6 x10*3/uL (2.0-8.3); Neutrophils Percent Auto 55.4 % (45-73); Platelet Count 242 X10*3/uL (160-400); Red Blood Count 4.47 X10*6/uL (4.60-5.80); Red Cell Distribution Width 13.4 % (11.0-16.0); White Blood Count 4.7 X10*3/uL (4.8-10.8)
== END 2023-01-22 10:40 | disposition home or self-care (01) ==
LOC: HO.HMGCLDS 10:39
PROVIDERS: PCP Nurse Practitioner Family; Visit Provider Nurse Practitioner Family
DX: Z13.89 Encounter for screening for other disorder (principal)
CPT/HCPCS: 36415; 85025

== ENCOUNTER 2023-02-24 16:03 | Outpatient (REF) | payer MEDICARE, SELFPAY ==
--- NOTE | ~2023-02-24 | CT_ITS ---
EXAMINATION: CT SOFT TISSUE NECK WITH CONTRAST CLINICAL INFORMATION: Other diseases of tongue COMPARISON: None. TECHNIQUE: Following the administration of 65 mL of Omnipaque 350 intravenous contrast, helical imaging was performed in the axial plane with generation of coronal and sagittal reformatted images. This CT examination was performed using dose optimization techniques as appropriate, variously including the following: *Automated exposure control. *Adjustment of mA and/or kV according to patient size (this includes techniques or standardized protocols for targeted exams where dose is matched to indication/reason for exam; i.e. extremities or head). *Use of iterative reconstruction technique. DLP: 370.11 mGy-cm FINDINGS: Nasopharynx/skull base: The fat planes of the skull base and soft tissues of the nasopharynx are unremarkable. The paranasal sinuses and mastoid air cells are well aerated. Mild degenerative changes of the temporomandibular joints. Suprahyoid neck: The oropharynx, oral cavity, and bilateral salivary gland tissues are unremarkable please note that evaluation of the oral cavity is somewhat limited due to streak artifact from dental amalgam. Infrahyoid neck: The hypopharynx and larynx are unremarkable. No aerodigestive tract mass. Thyroid: The thyroid gland is normal. Lymph nodes: There is no cervical chain lymphadenopathy. Lung apices: The partially visualized lung apices are clear. Vascular structures: No hemodynamically significant stenosis, dissection, or occlusion. Outside atherosclerotic disease involving the left greater than right carotid bifurcations without significant luminal narrowing. Osseous structures: The osseous structures are intact without suspicious focal lesion. Degenerative disc disease at C5-C6. Other: The imaged portions of the brain parenchyma are unremarkable. CT/CT soft tissue neck w IV con IMPRESSION: Normal soft tissues of the neck. No cervical lymphadenopathy. Please note that evaluation of the oral cavity and tongue is somewhat limited due to streak artifact from dental amalgam. Correlate clinically for discrete mucosal lesion.
[2023-02-24] MEDS: iohexoL 350 MG/ML 100 ML INFUS..BTL 65 ML IV (17:39)
[2023-02-25 06:22] LABS: Creatinine POC 0.6 mg/dL (0.5-1.4); GFR POC > 60
== END 2023-02-24 16:04 | disposition home or self-care (01) ==
LOC: HO.CT 16:03
PROVIDERS: PCP Nurse Practitioner Family; Visit Provider Nurse Practitioner Family
DX: K14.8 Other diseases of tongue (principal); F17.200 Nicotine dependence, unspecified, uncomplicated
CPT/HCPCS: 70491; 82565; Q9967

== ENCOUNTER 2023-05-09 09:32 | Outpatient (AMB) | payer MEDICARE, SELFPAY ==
--- NOTE | 2023-05-09 09:44 | MHC.PC.OV ---
Vital Signs 05/09/23 09:45 Height 6 ft 3 in Weight 161 lb 6 oz BMI 20.2 BP 130/80 Blood Pressure Location Rt brachial Position Sitting Pulse 60 Pulse Source Pulse Oximeter Pulse Oximetry (%) 96 Oxygen Delivery Method Room Air Intake Visit Reasons: 3 Month follow up Intake Note: pt is here to follow up for HTN Allergies No Known Allergies Allergy (Verified 05/09/23 10:07) Medication List - Last Reconciled 05/09/23 by SELENE Small amlodipine 10 mg PO DAILY 90 days atorvastatin 10 mg PO BEDTIME 90 days fluticasone propionate 50 mcg/actuation (Flonase Allergy Relief) 1 spray intranasal DAILY PRN magnesium citrate (Citrate of Magnesia oral) 150 mL PO DAILY multivitamin (Daily Multi-Vitamin tablet) 1 tab PO DAILY 90 days pregabalin 75 mg PO TID 30 days sertraline 100 mg PO DAILY 90 days sildenafil 50 mg PO DAILY PRN Tobacco use date assessed: 05/09/23 Dental Screening Dental Screen Date: 05/09/23 Did you have a dental visit in the last 12 months?: Yes Did you have a dental problem in the last 6 months where you did not have access to dental care?: No Was dental information given to patient?: Patient has dentist HPI 3 Month follow up HPI Details HTN: Blood pressure is stable, managed with amlodipine 10mg. Will order labs, encouraged pt to have these drawn. Denies chest pain, shortness of breath, headache, dizziness, and blurred vision. Pt is following up with ENT. He has quit smoking recently. [facility] Medical History Tongue dysplasia Personal history of nicotine dependence Nicotine dependence, cigarettes, uncomplicated Hepatitis C Elevated cholesterol HTN (hypertension) Mild ascending aorta dilatation Alcoholic peripheral neuropathy Surgical History History of right inguinal hernia repair History of left knee surgery History of surgery on lower extremity History of shoulder surgery History of hand surgery History of prostatectomy History of lumbar fusion Family History Maternal Uncle Substance use disorder Social History Housing: [place] Patient Tobacco Use Status: Current everyday Tobacco user Cigarettes Per Day: 5 Years Smoked: (onset 23yo, 1ppd x 38yrs, 35pyh - quit 01/2022) e-Cigarette/Vaping Use: Never Used Second Hand Smoke Exposure: No service: No Current occupational status: retired Hearing needs: Yes (hearing aides ) Vision needs: Yes (pt wears glasses ) Questionnaire PHQ-9 Over the last 2 weeks, how often have you been bothered by any of the following problems? 1. Little interest or pleasure in doing things: not at all 2. Feeling down, depressed, or hopeless: not at all 3. Trouble falling or staying asleep, or sleeping too much: not at all 4. Feeling tired or having little energy: not at all 5. Poor appetite or overeating: not at all 6. Feeling bad about yourself - or that you are a failure or have let yourself or your family down: not at all 7. Trouble concentrating on things, such as reading the newspaper or watching television: not at all 8. Moving or speaking so slowly that other people could have noticed. Or the opposite - being so fidgety or restless that you have been moving around a lot more than usual: not at all 9. Thoughts that you would be better off or of hurting yourself in some way: not at all Total score: 0 Depression Screening Interpretation: Negative Depression Screening Done: No Source: Developed by Drs. Horacio Yoder, Verona Adamson, Sawyer Garay and colleagues, with an educational dasia from [employer]. Thrive Questionnaire Date Thrive assessed: 05/09/23 I am a: Patient What is your living situation today?: I have a steady place to live Within the past 12 months, did the food you bought not last and you didn't have the money to get more?: Never true Within the past 12 months, did you worry whether your food would run out before you got money to buy more?: Never true Do you have trouble paying for medicines?: No Do you have trouble getting transportation to medical appointments?: No Do you have trouble paying your heating and electricity bill?: No Do you have trouble taking care of your child, family member or friend?: No Do you have trouble with day-to-day activities such as bathing, preparing meals, shopping, managing finances, etc.?: No Are you currently unemployed and looking for a job?: No Are you interested in more education?: No THRIVE Score: 0 AUDIT C Alcohol Use Questionnaire (AUDIT-C) 1. How often do you have a drink containing alcohol?: 2-3 times a week 2. How many drinks containing alcohol do you have on a typical day when you are drinking?: 1 or 2 3. How often do you have six or more drinks on one occasion?: Weekly Total Score: 6 Score Reviewed/Action Taken: Yes ARLENE-7 AMB Questionnaire ARLENE-7 Date ARLENE - 7 assessed: 05/09/23 Feeling nervous, anxious, or on edge: 1 = Several days Not being able to stop or control worryin = Not at all Worrying too much about different things: 0 = Not at all Trouble relaxin = Not at all Being so restless that it is hard to sit still: 0 = Not at all Becoming easily annoyed or irritable: 0 = Not at all Feeling afraid as if something awful might happen: 0 = Not at all Total ARLENE-7 score (0-4 normal; 5-9 mild; 10-14 moderate; 15-21 severe): 1 Source: Developed by Drs. Horacio Yoder, Verona Adamson, Sawyer Garay and colleagues, with an educational dasia from [employer]. Review of Systems Const Reports as per HPI Physical exam (Primary Care) Vital Signs: Last Vital Signs Pulse 60 05/09/23 09:45 BP 130/80 05/09/23 09:45 Pulse Ox 96 05/09/23 09:45 Oxygen Delivery Method Room Air 05/09/23 09:45 BMI result Body Mass Index 20.2 Tobacco/Smoking Status: Tobacco use Status Tobacco use date assessed 05/09/23 05/09/23 09:50 Patient Tobacco Use Status Current everyday Tobacco 05/09/23 09:50 e-Cigarette/Vaping Use Never Used 05/09/23 09:50 PHQ-9: PHQ-9 Score PHQ-9: Total score 0 05/09/23 09:59 Depression Screening Interpretation: Negative Thrive Assessment: Date of Thrive Assessment Date Thrive assessed 05/09/23 05/09/23 09:54 Const General: cooperative Orientation/consciousness: patient oriented x3 Resp Effort & Inspection: normal respiratory effort Auscultation: clear to auscultation bilaterally Cardio Rate: regular rate Rhythm: regular rhythm Heart sounds: S1 normal heart sound present and S2 normal heart sound present Neuro General: patient oriented x3 Psych Appearance: grossly normal Mental Status: mental status grossly normal Speech and movement: Normal speech and movement present Affect: normal affect Attitude: cooperative Thought process: Normal thought process present Thought content: Normal thought content present Insight: Good insight present (Psych) Judgement: Good judgement present (Psych) Assessment and Plan Assessment & Plan (1) HTN (hypertension): Code(s): I10 - Essential (primary) hypertension Plan: Labs ordered Plan The patient agreed to the use of a medical technologist hematology for this encounter. Scribed for SELENE Hdez by Estrellita Mercedes medical technologist hematology, on 05/09/2023 at 10:05 EST. Orders: Orders Complete Blood Count Auto Diff Today I10 - Essential (primary) hypertension Lipid Panel Today I10 - Essential (primary) hypertension Comprehensive [place]. Panel Fast Today I10 - Essential (primary) hypertension TSH reflex Free T4 Today I10 - Essential (primary) hypertension UA CC w/rflx Micro + Cult Today I10 - Essential (primary) hypertension Coding Level of Care Code Est Pt Level 3 (94393) Diagnoses HTN (hypertension) I10
[2023-05-09 09:45] VITALS: BP 130/80; PULSE 60; O2SAT 96; BMI 20.2
== END 2023-05-09 11:13 | disposition home or self-care (01) ==
PROVIDERS: PCP Nurse Practitioner Family; Visit Provider Nurse Practitioner Family
DX: I10 Essential (primary) hypertension (principal)
CPT/HCPCS: 99213

== ENCOUNTER 2023-06-22 10:37 | Outpatient (REF) | payer MEDICARE, SELFPAY ==
[2023-06-22 10:54] LABS: MANUAL DIFF FLAG NO
[2023-06-22 11:03] LABS: Basophils Percent Auto 0.2 % (0-2); Eosinophils Percent Auto 0.2 % (0-4); Hematocrit 43.5 % (42.0-52.0); Hemoglobin 15.2 g/dl (14.0-18.0); Imm Gran Abs Auto 0.02 X10*3/uL (0.00-0.03); Imm Gran Pct Auto 0.4 % (0.0-0.4); Lymphocytes Absolute Auto 0.7 X10*3/uL (1.2-4.9); Lymphocytes Percent Auto 14.8 % (20-40); Mean Corpuscular HGB Conc 34.9 g/dl (31.0-36.0); Mean Corpuscular Hemoglobin 31.1 pg (27.0-33.0); Mean Platelet Volume 8.8 fL (9.4-12.4); Monocytes Absolute Auto 0.6 X10*3/uL (0.1-1.2); Monocytes Percent Auto 12.2 % (2-11); Neutrophils Absolute Auto 3.6 x10*3/uL (2.0-8.3); Neutrophils Percent Auto 72.2 % (45-73); Platelet Count 176 X10*3/uL (160-400); Red Blood Count 4.89 X10*6/uL (4.60-5.80); Red Cell Distribution Width 14.1 % (11.0-16.0)
[2023-06-22 11:29] LABS: Appearance Urine Cloudy; Color Urine Dark Yellow; Glucose Urine UA Negative (Negative); Leukocyte Esterase Urine Small (1+) (Negative); Nitrite Urine Negative (Negative); Specific Gravity - Urine >= 1.030 (1.005-1.025); UMIC TRIGGER UACC YES; Urine Blood Negative (Negative); Urine Ketones 15 mg/dL (Negative); Urine Protein 100 (2+) mg/dL (Neg-Trace)
[2023-06-22 11:44] LABS: Bacteria Urine None Seen (None Seen); Granular Casts Urine Present; UACC Culture Trigger YES; WBC Urine 0-5 /HPF (0-5)
[2023-06-22 11:45] LABS: RBC Urine 0-2 /HPF (0-2)
--- NOTE | 2023-06-22 11:54 | ECG_ITS ---
Test Reason : PREOP Blood Pressure : / mmHG Vent. Rate : 066 BPM Atrial Rate : 066 BPM P-R Int : 160 ms QRS Dur : 090 ms QT Int : 364 ms P-R-T Axes : 078 078 080 degrees QTc Int : 381 ms Normal sinus rhythm Biatrial enlargement Abnormal ECG No previous ECGs available Referred By: BENITO MARTINEZ Electronically Signed By:LES SIMON
[2023-06-22 12:05] LABS: Alanine Aminotransferase 20 U/L (0-40); Albumin Level 4.5 g/dL (3.5-5.0); Alkaline Phosphatase 88 U/L (39-117); Anion Gap 14 (12-20); Aspartate Amino Transferase 43 U/L (5-37); Bilirubin Total 0.7 mg/dL (0.0-1.0); Blood Urea Nitrogen 17 mg/dL (9-16); Calcium 9.5 mg/dL (8.4-10.2); Carbon Dioxide 29 mmol/L (22-29); Chloride 100 mmol/L (96-108); Cholesterol 189 mg/dL (<200); Estimated Glomerular Filt Rate > 60; Glucose Fasting 139 mg/dL (60-99); HDL Cholesterol 113 mg/dL (>40); LDL Cholesterol Calculated 59 mg/dL (<100); Potassium 3.5 mmol/L (3.3-5.1); Sodium 139 mmol/L (135-145); Triglycerides 88 mg/dL (<150)
[2023-06-22 12:08] LABS: TSH reflex Free T4 1.26 uIU/mL (0.32-4.0)
[2023-06-22 12:30] LABS: INTERNATIONAL NORM RATIO 0.8 (0.9-1.1); Prothrombin Time 9.9 SEC (11.1-13.3)
== END 2023-06-22 10:38 | disposition home or self-care (01) ==
LOC: HO.LAB 10:37
PROVIDERS: PCP Nurse Practitioner Family; Referring Provider Internal Medicine
DX: Z01.818 Encounter for other preprocedural examination (principal); I10 Essential (primary) hypertension; E78.5 Hyperlipidemia, unspecified; R82.90 Unspecified abnormal findings in urine
CPT/HCPCS: 36415; 80053; 80061; 81001; 84443; 85025; 85610; 85730; 87086; 93005

== ENCOUNTER → 2023-06-22 11:54 | Outpatient (BNV) | payer MEDICARE, SELFPAY | PROVIDERS: PCP Nurse Practitioner Family; Visit Provider Internal Medicine | DX: R94.31 Abnormal electrocardiogram [ECG] [EKG] (principal) | CPT/HCPCS: 93010 ==

== ENCOUNTER 2023-07-14 10:50 | Outpatient (AMB) | payer MEDICARE, SELFPAY ==
[2023-07-14 10:53] VITALS: BP 140/100; PULSE 113; O2SAT 98; BMI 19.9
--- NOTE | 2023-07-14 10:53 | HO.NEPHOV_ITS ---
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 He has hypertension over 30 years. He has been on medications. He checks blood pressure at home and claims it is under good control. He has had no blood pressure medication changes recently. He has not a diabetic. He has remote history of smoking. 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 He has history of excessive alcohol intake. He has remote history of using cocaine and had hepatitis C antibody positivity. Recently he was found to have protein in the urine. He had some weight loss which he is gaining back now. He has hearing issues as well as tinnitus and has hearing aids . He has no history of hematuria. He has history of prostate cancer in the past. He has dyslipidemia and was recently started on lipitor. He does not take excessive nonsteroidal anti-inflammatory medications. His serum creatinine has been stable. He denies any renal calculi, joint swellings, epistaxis, recurrent sinusitis or pedal edema. He denies taking excess sodium in the diet. He claims to be compliant with his medications. [facility] Medical History Tongue dysplasia Personal history of nicotine dependence Nicotine dependence, cigarettes, uncomplicated Hepatitis C Elevated cholesterol HTN (hypertension) Mild ascending aorta dilatation Alcoholic peripheral neuropathy Surgical History History of right inguinal hernia repair History of left knee surgery History of surgery on lower extremity History of shoulder surgery History of hand surgery History of prostatectomy History of lumbar fusion Family History Maternal Uncle Substance use disorder Social History Housing: House Patient Tobacco Use Status: Current everyday Tobacco user Cigarettes Per Day: 5 Years Smoked: (onset 23yo, 1ppd x 38yrs, 35pyh - quit 01/2022) e-Cigarette/Vaping Use: Never Used Second Hand Smoke Exposure: No service: No Current occupational status: retired Hearing needs: Yes (hearing aides ) Vision needs: Yes (pt wears glasses ) Physical Exam Vital Signs: Last Vital Signs Pulse 113 H 07/14/23 10:53 BP 140/100 H 07/14/23 10:53 Pulse Ox 98 07/14/23 10:53 Oxygen Delivery Method Room Air 07/14/23 10:53 BMI result Body Mass Index 19.9 Const General: comfortable and no acute distress Orientation/consciousness: patient oriented x3 HEENT Head: Yes normocephalic Mouth: Normal oral and palatal mucosa present Eyes EOM: EOMs intact bilaterally Neck Neck: Yes supple Resp Auscultation: clear to auscultation bilaterally Cardio Jugular venous distension: no JVD Rate: regular rate GI Palpation (GI): Soft to palpation Auscultation: normal bowel sounds General: Yes no CVA tenderness Back/Spine/Pelvis Back: no CVA tenderness Skin General skin exam: no rashes or lesions noted Neuro General: patient oriented x3 and moves all extremities Extrem General: Yes no pedal edema Results Reviewed Nephrology Results: Hgb 15.2 g/dl (14.0-18.0) 06/22/23 WBC 5.0 X10*3/uL (4.8-10.8) 06/22/23 Plt Count 176 X10*3/uL (160-400) 06/22/23 Sodium 139 mmol/L (135-145) 06/22/23 Potassium 3.5 mmol/L (3.3-5.1) 06/22/23 Chloride 100 mmol/L (96-108) 06/22/23 Carbon Dioxide 29 mmol/L (22-29) 06/22/23 BUN 17 mg/dL (9-16) H 06/22/23 Creatinine 0.92 mg/dL (0.5-1.4) 06/22/23 Calcium 9.5 mg/dL (8.4-10.2) 06/22/23 Urine Protein 100 (2+) mg/dL (Neg-Trace) H 06/22/23 Assessment & Plan Assessment & Plan (1) HTN (hypertension): Code(s): I10 - Essential (primary) hypertension Category: Medical Qualifiers: Hypertension type: primary hypertension Qualified Code(s): I10 - Essential (primary) hypertension (2) Proteinuria: Code(s): R80.9 - Proteinuria, unspecified Category: Medical Qualifiers: Proteinuria type: other Qualified Code(s): R80.8 - Other proteinuria Lucina Lancaster has longstanding hypertension. He has been taking amlodipine which is keeping his blood pressure at goal now. He had history of prostate cancer in the past and carcinoma in-situ recently for which he has undergone surgery. He has no history of hypercalcemia, renal dysfunction, retinopathy or pedal edema. He was found to have proteinuria recently. I have ordered workup including 24 hour urine collection for protein quantification. I may switch him to angiotensin receptor stacie given he has hypertension and may be proteinuria. I shall do more workup including renal biopsy if needed, pending evolving data. I did not make any medication changes today but explained all these in detail. I answered all his questions. Follow-up appointment given. Orders: Orders US renal BI 07/14/23 I10 - Essential (primary) hypertension, R80.9 - Proteinuria, unspecified Immunofixation, Random Urine 07/14/23 I10 - Essential (primary) hypertension, R80.9 - Proteinuria, unspecified Protein, 24 Hr Urine Group 07/14/23 I10 - Essential (primary) hypertension, R80.9 - Proteinuria, unspecified Immunofixation Pnl, Serum 07/14/23 I10 - Essential (primary) hypertension, R80.9 - Proteinuria, unspecified Calcium 07/14/23 I10 - Essential (primary) hypertension, R80.9 - Proteinuria, unspecified Complete Blood Count Auto Diff 07/14/23 I10 - Essential (primary) hypertension, R80.9 - Proteinuria, unspecified Coding Level of Care Code New Pt Level 4 (38227) Diagnoses Primary hypertension I10 Hypertension type: primary hypertension Other proteinuria R80.8 Proteinuria type: other
== END 2023-07-14 11:24 | disposition home or self-care (01) ==
PROVIDERS: PCP Nurse Practitioner Family; Referring Provider Nurse Practitioner Family; Visit Provider Internal Medicine Nephrology
DX: I10 Essential (primary) hypertension (principal); R80.8 Other proteinuria
CPT/HCPCS: 99204

== ENCOUNTER → 2023-07-14 10:50 | Outpatient (BNVA) | payer MEDICARE, SELFPAY | PROVIDERS: PCP Nurse Practitioner Family; Referring Provider Nurse Practitioner Family; Visit Provider Internal Medicine Nephrology | DX: I10 Essential (primary) hypertension (principal); R80.8 Other proteinuria | CPT/HCPCS: 99202 ==

== ENCOUNTER 2023-07-22 07:00 | Outpatient (REF) | payer MEDICARE, SELFPAY ==
[2023-07-22 14:05] LABS: Creatinine, mg/dL 40.89; Protein mg/dL < 7 mg/dL
[2023-07-22 14:57] LABS: Creatinine, 24Hr Urine 1.3 G/Day (1.0-2.0); Protein 24 Hr Urine < 228 mg/Day (<150); Total Volume 24 Hour Urine 3250 mL
== END 2023-07-22 07:01 | disposition home or self-care (01) ==
LOC: HO.HMGCLR 07:00
PROVIDERS: PCP Nurse Practitioner Family; Visit Provider Internal Medicine Nephrology
DX: Z13.89 Encounter for screening for other disorder (principal)
CPT/HCPCS: 84156

== ENCOUNTER 2023-07-22 10:17 | Outpatient (REF) | payer MEDICARE, SELFPAY ==
--- NOTE | ~2023-07-22 | US_ITS ---
EXAMINATION: US RETROPERITONEAL LIMITED (RENAL ONLY) CLINICAL INFORMATION: Proteinuria. COMPARISON: None available. TECHNIQUE: Real-time ultrasound of both kidneys was performed. FINDINGS: RIGHT KIDNEY: 12.2 x 5.1 x 5.7 cm (SAG x AP x TRV). The kidney is normal in size, contour, and echogenicity. Renal cortical thickness is normal. No calculi or focal parenchymal lesions. No hydronephrosis. LEFT KIDNEY: 11.5 x 4.8 x 5.7 cm (SAG x AP x TRV). The kidney is normal in size, contour, and echogenicity. Renal cortical thickness is normal. No calculi or focal parenchymal lesions. No hydronephrosis. US/US renal BI IMPRESSION: Normal renal ultrasound.
== END 2023-07-22 10:18 | disposition home or self-care (01) ==
LOC: HO.HMGCX 10:17
PROVIDERS: PCP Nurse Practitioner Family; Visit Provider Internal Medicine Nephrology
DX: R80.9 Proteinuria, unspecified (principal); I10 Essential (primary) hypertension
CPT/HCPCS: 76775; 84156

== ENCOUNTER 2023-07-25 07:28 | Outpatient (AMB) | payer MEDICARE, SELFPAY ==
[2023-07-25 07:34] VITALS: BP 140/80; PULSE 72; O2SAT 97
--- NOTE | 2023-07-25 07:34 | A.OFFPC_ITS ---
Vital Signs 07/25/23 07:34 Height 6 ft 3 in Weight 160 lb BMI 20.0 BP 140/80 H Blood Pressure Location Rt brachial Position Sitting Pulse 72 Pulse Source Pulse Oximeter Pulse Oximetry (%) 97 Intake Visit Reasons: Annual PE Intake Note: Pt is here today for his PE Allergies No Known Allergies Allergy (Verified 07/25/23 07:40) Medication List - Last Reconciled 07/25/23 by SELENE Small amlodipine 10 mg PO DAILY 90 days atorvastatin 10 mg PO BEDTIME 90 days fluticasone propionate 50 mcg/actuation (Flonase Allergy Relief) 1 spray intranasal DAILY PRN multivitamin (Daily Multi-Vitamin tablet) 1 tab PO DAILY 90 days pregabalin 75 mg PO TID 30 days sertraline 100 mg PO DAILY 90 days sildenafil 50 mg PO DAILY PRN Tobacco use date assessed: 07/25/23 Dental Screening Dental Screen Date: 07/25/23 Did you have a dental visit in the last 12 months?: Yes Did you have a dental problem in the last 6 months where you did not have access to dental care?: No Was dental information given to patient?: Patient has dentist HPI Annual PE HPI Details Pt is here for a PE. Most labs were already performed. Cologuard is up to date. Due for PSA in the near future, will order. Denies dribbling with urination, weak stream, and frequent nocturia. Pt sees nephrology due to proteinuria. He is part of the LDCT program. Pt's last fasting blood sugar was elevated, though he reports he was not truly fasting. Will repeat labs. Pt has a hx of mild ascending aorta dilatation. Will repeat echo. Pt had a tongue lesion that was removed approximately 4 weeks ago. He is following up with oncology/oral surgery for this. HTN: Pt reports that his blood pressure at home is in the 120s-130s systolically. [facility] Medical History Tongue dysplasia Personal history of nicotine dependence Nicotine dependence, cigarettes, uncomplicated Hepatitis C Elevated cholesterol HTN (hypertension) Mild ascending aorta dilatation Alcoholic peripheral neuropathy Surgical History History of right inguinal hernia repair History of left knee surgery History of surgery on lower extremity History of shoulder surgery History of hand surgery History of prostatectomy History of lumbar fusion Family History Maternal Uncle Substance use disorder Social History Housing: House Patient Tobacco Use Status: Current everyday Tobacco user Cigarettes Per Day: 5 Years Smoked: (onset 23yo, 1ppd x 38yrs, 35pyh - quit 01/2022) e-Cigarette/Vaping Use: Never Used Second Hand Smoke Exposure: No service: No Current occupational status: retired Hearing needs: Yes (hearing aides ) Vision needs: Yes (pt wears glasses ) Questionnaire PHQ-9 Over the last 2 weeks, how often have you been bothered by any of the following problems? 1. Little interest or pleasure in doing things: not at all 2. Feeling down, depressed, or hopeless: not at all 3. Trouble falling or staying asleep, or sleeping too much: not at all 4. Feeling tired or having little energy: several days 5. Poor appetite or overeating: not at all 6. Feeling bad about yourself - or that you are a failure or have let yourself or your family down: not at all 7. Trouble concentrating on things, such as reading the newspaper or watching television: not at all 8. Moving or speaking so slowly that other people could have noticed. Or the opposite - being so fidgety or restless that you have been moving around a lot more than usual: not at all 9. Thoughts that you would be better off or of hurting yourself in some way: not at all Total score: 1 Depression Screening Interpretation: Negative Depression Screening Done: Yes 24023 - PHQ-9 Billing: Yes Source: Developed by Drs. Horacio Yoder, Verona Adamson, Sawyer Garay and colleagues, with an educational dasia from [employer]. Thrive Questionnaire Date Thrive assessed: 07/25/23 I am a: Patient What is your living situation today?: I have a steady place to live Within the past 12 months, did the food you bought not last and you didn't have the money to get more?: Never true Within the past 12 months, did you worry whether your food would run out before you got money to buy more?: Never true Do you have trouble paying for medicines?: No Do you have trouble getting transportation to medical appointments?: No Do you have trouble paying your heating and electricity bill?: No Do you have trouble taking care of your child, family member or friend?: No Do you have trouble with day-to-day activities such as bathing, preparing meals, shopping, managing finances, etc.?: No Are you currently unemployed and looking for a job?: No Are you interested in more education?: No THRIVE Score: 0 ARLENE-7 AMB Questionnaire ARLENE-7 Date ARLENE - 7 assessed: 07/25/23 Feeling nervous, anxious, or on edge: 0 = Not at all Not being able to stop or control worryin = Not at all Worrying too much about different things: 0 = Not at all Trouble relaxin = Not at all Being so restless that it is hard to sit still: 0 = Not at all Becoming easily annoyed or irritable: 0 = Not at all Feeling afraid as if something awful might happen: 0 = Not at all Total ARLENE-7 score (0-4 normal; 5-9 mild; 10-14 moderate; 15-21 severe): 0 Source: Developed by Drs. Horacio Yoder, Verona Adamson, Sawyer Garay and colleagues, with an educational dasia from [employer]. ARLENE-7 Assessment Billing ARLENE-7 Assessment Tool: ARLENE-7 Assessment 71542 Review of Systems Const Denies chills and Denies fever(s) Eyes Denies blurry vision ENT Denies vertigo, Denies dizziness and Denies sore throat Card Denies chest pain at rest, Denies chest pain with activity, Denies diaphoresis, Denies dyspnea and Denies dyspnea on exertion Resp Denies cough, Denies dyspnea, Denies dyspnea on exertion and Denies wheezing GI Denies abdominal pain, Denies melena, Denies hematochezia, Denies constipation, Denies diarrhea and Denies loose stools Denies hematuria Musc Denies numbness and Denies tingling Skin/Breast Denies lesions Neuro Denies vertigo, Denies dizziness, Denies numbness and Denies tingling Psych Denies anxiety, Denies depression, Denies homicidal ideation, Denies suicidal ideation and Denies other (substance abuse) Aller/Immun Denies wheezing Physical exam (Primary Care) BMI result Body Mass Index 20.0 Tobacco/Smoking Status: Tobacco use Status Tobacco use date assessed 05/09/23 07/25/23 07:36 Patient Tobacco Use Status Current everyday Tobacco 07/25/23 07:36 e-Cigarette/Vaping Use Never Used 07/25/23 07:36 Depression Screening Interpretation: Negative Thrive Assessment: Date of Thrive Assessment Date Thrive assessed 05/09/23 07/25/23 07:36 Const General: cooperative Nutritional Appearance: well nourished Orientation/consciousness: patient oriented x3 HENMT Other: right side of sublingual papilla with nodular indurated piece of tissue, not tender with touch Head: Yes normal to inspection, Yes normocephalic and Yes atraumatic Ears: TM's normal bilaterally Eyes General: appearance normal, both eyes and all related structures Alignment and Position: alignment normal and position normal Neck Neck: Yes normal visual inspection and Yes no lymphadenopathy Thyroid: Thyroid normal Resp Effort & Inspection: normal respiratory effort Auscultation: clear to auscultation bilaterally Cardio Rate: regular rate Rhythm: regular rhythm Heart sounds: S1 normal heart sound present, S2 normal heart sound present and no murmurs GI Palpation (GI): Soft to palpation and nontender Auscultation: normal bowel sounds Male General Exam: Yes normal external exam Penis: normal penis Scrotum: scrotum normal, testes descended bilaterally and no inguinal hernias Testes: no testicular mass Skin Rashes: no rashes Neuro General: patient oriented x3, moves all extremities, no focal motor deficits and deep tendon reflexes 2+ bilaterally Romberg Test: Negative Psych Appearance: grossly normal Mental Status: mental status grossly normal Speech and movement: Normal speech and movement present Affect: normal affect Attitude: cooperative Thought process: Normal thought process present Thought content: Normal thought content present Insight: Good insight present (Psych) Judgement: Good judgement present (Psych) Assessment and Plan Assessment & Plan (1) Tongue lesion: Code(s): K14.8 - Other diseases of tongue Plan: following up with maxillofacial/oncology in approx 1 month (2) Elevated fasting blood sugar: Code(s): R73.01 - Impaired fasting glucose Plan: will recheck, was not truly fasting last time. (3) Encounter for routine adult physical exam with abnormal findings: Code(s): Z00.01 - Encounter for general adult medical examination with abnormal findings Plan: PSA ordered (4) Mild ascending aorta dilatation: Code(s): I77.810 - Thoracic aortic ectasia Plan: echo ordered Plan The patient agreed to the use of a durable medical equipment repairer for this encounter. Scribed for DANYEL Hdez-BRITT by Estrellita Mercedes durable medical equipment repairer, on 07/25/2023 at 08:00 EST. Orders: Orders Prostate Specific Antigen Scr Today Z12.5 - Encounter for screening for malignant neoplasm of prostate Comprehensive [place]. Panel Fast Today R73.01 - Impaired fasting glucose AMB EKG-In Office Today Z00.01 - Encounter for general adult medical examination with abnormal findings CA echo transthoracic complete Today I77.810 - Thoracic aortic ectasia Coding Level of Care Code Est Pt Prev Care 40-64y(54415) Diagnoses Tongue lesion K14.8 Elevated fasting blood sugar R73.01 Encounter for routine adult physical exam with abnormal findings Z00.01 Mild ascending aorta dilatation I77.810 Additional Codes ARLENE-7 Assessment Billing - ARLENE-7 Assessment Tool: ARLENE-7 Assessment 57342 ([id number])
== END 2023-07-25 08:25 | disposition home or self-care (01) ==
PROVIDERS: Visit Provider Nurse Practitioner Family
DX: Z00.00 Encounter for general adult medical examination without abnormal findings (principal); R73.01 Impaired fasting glucose; I77.810 Thoracic aortic ectasia; K14.8 Other diseases of tongue
CPT/HCPCS: 93000; 99396

== ENCOUNTER → 2023-08-16 14:45 | Outpatient (REF) | payer MEDICARE, SELFPAY ==
--- NOTE | 2023-08-16 14:48 | CA_ITS ---
Transthoracic Echocardiogram Patient (Last, First, Middle): Tonny French J Gender: Male Date of : 1960 Age: 63 Procedure Date: 08/16/2023 Procedure Type: Transthoracic Echocardiogram Location: OP Height: 190.5 cm Weight: 72.58 kg BSA: 2.00 m2 Heart Rate: 66 bpm BP: 112 / 75 mmHg Health And Wellness Advisor: DARIAN Referring MD: Benji Leon [facility] Symptoms: I77.810 - Thoracic aortic ectasia Study Quality: Fair ECG Rhythm: Sinus Conclusions: - The left ventricular systolic function is mildly decreased. The visually estimated ejection fraction is between 45-50%. - No obvious valvular pathology seen on this study. Findings Left Ventricle Normal left ventricular cavity size. There is normal left ventricular wall thickness. The left ventricular systolic function is mildly decreased. The visually estimated ejection fraction is between 45-50%. There is mild global hypokinesis. Diastolic function is normal for age. Right Ventricle Normal right ventricular cavity size and systolic function. Atria Both atria are normal in size. Aortic Valve There is a normal trileaflet aortic valve. There is no aortic valve stenosis. There is no aortic valve regurgitation. Mitral Valve The mitral valve appears normal. There is trace mitral valve regurgitation. There is no mitral valve stenosis. Pulmonic Valve The pulmonic valve is likely normal. Tricuspid Valve There is no tricuspid valve regurgitation. Tricuspid regurgitation envelope is inadequate for calculation of right ventricular systolic pressure. Great Vessels The asc aorta is normal in size. Venous The inferior vena cava is normal in size and collapses greater than 50% with inspiration. Pericardium/Pleural There is no evidence of pericardial effusion. Prior Study Comparison No prior study available for comparison. Recommendations, Care & Conclusions No obvious valvular pathology seen on this study. Measurements 2D Linear Measurements IVSd: 0.88 0.6-0.9/0.6-1.0 cm LVIDd: 5.39 3.9-5.3/4.2-5.9 cm LVIDd Index: 2.70 2.4-3.2/2.2-3.1 cm/m2 LVIDs: 4.03 2.0-3.6 cm LVPWd: 0.91 0.7-1.1 cm LA Diam: 3.30 2.7-3.8/3.0-4.0 cm LAIDs Index: 1.65 1.5-2.3 cm/m2 LV Mass: 221.45 67-162/88-224 g LV Mass Index: 110.73 43-95/49-115 g/m2 LVOT Diam: 2.20 3.0+(-)1.3 cm 2D Systolic Function EF 4C: 49.50 >55% EF 2C: 51.70 >55% EF BiP: 51.10 >55% Mitral Valve MV Pk E: 0.71 MV PK A: 0.76 MV Decel Time: 183.00 E/A: 0.90 E'Lateral: 7.51 E'Medial: 5.98 E/E' Med: 11.80 E/E' Lat: 9.40 PHT: 54.00 MVA PHT: 4.07 Decel Butts: 3.87 Aortic Valve AoV Pk Marcos: 1.50 AoV Mn Marcos: 1.13 AoV VTI: 0.35 AoV Pk Grad: 9.00 Aov Mn Grad: 6.00 IMAN Cont.VTI: 2.41 LVOT LVOT Pk Marcos: 1.05 LVOT Mn Marcos: 0.72 LVOT VTI: 0.22 LVOT Pk Grad: 4.00 LVOT Mn Grad: 3.00 LVOT Diam: 2.20 LVOT Area: 3.80 Diastolic Function MV Pk E: 0.71 MV Pk A: 0.76 E/A: 0.90 E'Medial: 5.98 E/E' Med: 11.80 E' Laterial: 7.51 E/E' Lat: 9.40 Right Ventricle TAPSE (mm): 20.30 TVS' Marcos: 11.30 Tricuspid Valve RA Press: 8.00 Great Vessels Aorta Sinus of Valsalva: 3.40 2.0-3.5 cm Ao Asc: 3.50 2.1-3.4 cm Pulmonary Valve PV Pk Marcos: 0.62 Peak PV Grad: 2.00 Updated in Other Vendor System with Status of Final Spencer Lynch MD electronically signed on 08/17/2023 11:05:28 AM with status of Final
== END ==
LOC: HO.CARD 14:45
PROVIDERS: PCP Nurse Practitioner Family; Visit Provider Nurse Practitioner Family
DX: I77.810 Thoracic aortic ectasia (principal)
CPT/HCPCS: 93306

== ENCOUNTER → 2023-08-16 14:48 | Outpatient (BNV) | payer MEDICARE, SELFPAY | PROVIDERS: PCP Nurse Practitioner Family; Visit Provider Internal Medicine | DX: I51.89 Other ill-defined heart diseases (principal); R93.1 Abnormal findings on diagnostic imaging of heart and coronary circulation | CPT/HCPCS: 93306 ==

== ENCOUNTER 2023-08-23 11:29 | Outpatient (AMB) | payer MEDICARE, SELFPAY ==
--- NOTE | 2023-08-23 11:57 | HO.NEPHOV_ITS ---
Vital Signs 08/23/23 12:02 Height 6 ft 3 in Weight 158 lb BMI 19.7 BP 122/82 Blood Pressure Location Lt brachial Position Sitting Pulse 80 Pulse Source Pulse Oximeter Pulse Oximetry (%) 95 Oxygen Delivery Method Room Air Intake Visit Reasons: 6wks follow up/ LVM Instrument Technologist Required: No Accompanied by: Self / Same As Patient Allergies No Known Allergies Allergy (Verified 08/23/23 12:04) HPI Comments Details: I had the privilege of seeing Tonny in follow up for proteinuria. He has hypertension over 30 years. He has been on medications. He checks blood pressure at home and claims it is under good control. He has had no blood pressure medication changes recently. He has not a diabetic. He has remote history of smoking. 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 He has history of excessive alcohol intake. He has remote history of using cocaine and had hepatitis C antibody positivity. Recently he was found to have protein in the urine. He had some weight loss which he is gaining back now. He has hearing issues as well as tinnitus and has hearing aids . He has no history of hematuria. He has history of prostate cancer in the past. He has dyslipidemia and was recently started on lipitor. He does not take excessive nonsteroidal anti-inflammatory medications. His serum creatinine has been stable. He denies any renal calculi, joint swellings, epistaxis, recurrent sinusitis or pedal edema. He denies taking excess sodium in the diet. He claims to be compliant with his medications. He had 24 hour urine which showed 226 mg of protein [facility] Medical History Tongue dysplasia Personal history of nicotine dependence Nicotine dependence, cigarettes, uncomplicated Hepatitis C Elevated cholesterol HTN (hypertension) Mild ascending aorta dilatation Alcoholic peripheral neuropathy Surgical History History of right inguinal hernia repair History of left knee surgery History of surgery on lower extremity History of shoulder surgery History of hand surgery History of prostatectomy History of lumbar fusion Family History Maternal Uncle Substance use disorder Social History Housing: House Patient Tobacco Use Status: Current everyday Tobacco user Cigarettes Per Day: 5 Years Smoked: (onset 23yo, 1ppd x 38yrs, 35pyh - quit 01/2022) e-Cigarette/Vaping Use: Never Used Second Hand Smoke Exposure: No service: No Current occupational status: retired Hearing needs: Yes (hearing aides ) Vision needs: Yes (pt wears glasses ) Physical Exam Vital Signs: Last Vital Signs BP 122/82 08/23/23 12:02 BMI result Body Mass Index 19.7 Const General: comfortable and no acute distress Orientation/consciousness: patient oriented x3 HEENT Head: Yes normocephalic Mouth: Normal oral and palatal mucosa present Eyes EOM: EOMs intact bilaterally Neck Neck: Yes supple Resp Auscultation: clear to auscultation bilaterally Cardio Jugular venous distension: no JVD Rate: regular rate GI Palpation (GI): Soft to palpation Auscultation: normal bowel sounds General: Yes no CVA tenderness Back/Spine/Pelvis Back: no CVA tenderness Skin General skin exam: no rashes or lesions noted Neuro General: patient oriented x3 and moves all extremities Results Reviewed Nephrology Results: Hgb 15.2 g/dl (14.0-18.0) 06/22/23 WBC 5.0 X10*3/uL (4.8-10.8) 06/22/23 Plt Count 176 X10*3/uL (160-400) 06/22/23 Sodium 139 mmol/L (135-145) 06/22/23 Potassium 3.5 mmol/L (3.3-5.1) 06/22/23 Chloride 100 mmol/L (96-108) 06/22/23 Carbon Dioxide 29 mmol/L (22-29) 06/22/23 BUN 17 mg/dL (9-16) H 06/22/23 Creatinine 0.92 mg/dL (0.5-1.4) 06/22/23 Calcium 9.5 mg/dL (8.4-10.2) 06/22/23 Urine Protein 100 (2+) mg/dL (Neg-Trace) H 06/22/23 Renal US 07/22/23 Assessment & Plan Assessment & Plan (1) Proteinuria: Code(s): R80.9 - Proteinuria, unspecified Category: Medical Qualifiers: Proteinuria type: other Qualified Code(s): R80.8 - Other proteinuria (2) HTN (hypertension): Code(s): I10 - Essential (primary) hypertension Category: Medical Qualifiers: Hypertension type: primary hypertension Qualified Code(s): I10 - Essential (primary) hypertension Plan Tonny has longstanding hypertension. He has been taking amlodipine . I reduced the dose to 5 mg and started on lisinoprilk 2.5 mg which I plan to maximize with time and D/C Amlodipine at that time. He had history of prostate cancer in the past and carcinoma in-situ recently for which he has undergone surgery. He has no history of hypercalcemia, renal dysfunction, retinopathy or pedal edema. He was found to have proteinuria recently. 24 hour urine collection for protein quantification showed 226 mg of protein. I shall do more workup including renal biopsy if needed, pending evolving data. I did not make any other medication changes today but explained all these in detail. I answered all his questions. Follow-up appointment given. Medications: New lisinopril 2.5 mg PO DAILY 30 tabs 4RF Coding Level of Care Code Est Pt Level 4 (77240) Diagnoses Other proteinuria R80.8 Proteinuria type: other Primary hypertension I10 Hypertension type: primary hypertension
[2023-08-23 12:02] VITALS: BP 122/82; PULSE 80; O2SAT 95; BMI 19.7
== END 2023-08-23 12:16 | disposition home or self-care (01) ==
PROVIDERS: PCP Nurse Practitioner Family; Visit Provider Internal Medicine Nephrology
DX: R80.8 Other proteinuria (principal); I10 Essential (primary) hypertension
CPT/HCPCS: 99214

== ENCOUNTER → 2023-08-23 11:29 | Outpatient (BNVA) | payer MEDICARE, SELFPAY | PROVIDERS: PCP Nurse Practitioner Family; Visit Provider Internal Medicine Nephrology | DX: R80.8 Other proteinuria (principal); I10 Essential (primary) hypertension; Z79.899 Other long term (current) drug therapy | CPT/HCPCS: 99212 ==

== ENCOUNTER 2023-12-12 12:00 | Outpatient (REF) | payer MEDICARE, SELFPAY ==
[2023-12-12 13:14] LABS: MANUAL DIFF FLAG NO
[2023-12-12 13:39] LABS: Basophils Absolute Auto 0.1 X10*3/uL (0.0-0.2); Basophils Percent Auto 1.3 % (0-2); Eosinophils Absolute Auto 0.1 X10*3/uL (0.0-0.4); Eosinophils Percent Auto 1.5 % (0-4); Hemoglobin 9.8 g/dl (14.0-18.0); Imm Gran Abs Auto 0.04 X10*3/uL (0.00-0.03); Lymphocytes Absolute Auto 1.4 X10*3/uL (1.2-4.9); Lymphocytes Percent Auto 34.9 % (20-40); Mean Corpuscular HGB Conc 32.7 g/dl (31.0-36.0); Mean Corpuscular Hemoglobin 32.3 pg (27.0-33.0); Mean Platelet Volume 10.3 fL (9.4-12.4); Monocytes Absolute Auto 0.4 X10*3/uL (0.1-1.2); Monocytes Percent Auto 9.3 % (2-11); Neutrophils Absolute Auto 2.1 x10*3/uL (2.0-8.3); Platelet Count 165 X10*3/uL (160-400); Red Blood Count 3.03 X10*6/uL (4.60-5.80); Red Cell Distribution Width 16.1 % (11.0-16.0)
[2023-12-12 14:08] LABS: Alanine Aminotransferase 46 U/L (0-40); Albumin Level 3.3 g/dL (3.5-5.0); Alkaline Phosphatase 184 U/L (39-117); Anion Gap 8 (12-20); Aspartate Amino Transferase 99 U/L (5-37); Bilirubin Total 1.3 mg/dL (0.0-1.0); Blood Urea Nitrogen 11 mg/dL (9-16); Calcium 8.5 mg/dL (8.4-10.2); Carbon Dioxide 30 mmol/L (22-29); Chloride 106 mmol/L (96-108); Estimated Glomerular Filt Rate > 60; Glucose Fasting 105 mg/dL (60-99); Potassium 4.3 mmol/L (3.3-5.1); Sodium 140 mmol/L (135-145); Total Protein 6.7 g/dL (6.5-8.0)
[2023-12-12 14:16] LABS: Prostate Specific Antigen Scr < 0.10 ng/mL (<0.05-4.0)
[2023-12-14 21:28] LABS: IgA 603 mg/dL (70-320); IgG 1229 mg/dL (600-1540); IgM 83 mg/dL (50-300)
== END 2023-12-12 12:01 | disposition home or self-care (01) ==
LOC: HO.HMGCLDS 12:00
PROVIDERS: PCP Nurse Practitioner Family; Referring Provider Internal Medicine Nephrology; Visit Provider Nurse Practitioner Family
DX: R80.9 Proteinuria, unspecified (principal); I10 Essential (primary) hypertension; Z12.5 Encounter for screening for malignant neoplasm of prostate; R73.01 Impaired fasting glucose
CPT/HCPCS: 36415; 80053; 82784; 84153; 85025; 86334; 86335

== ENCOUNTER 2023-12-20 10:46 | Outpatient (AMB) | payer MEDICARE, SELFPAY ==
[2023-12-20 10:51] VITALS: BP 128/80; PULSE 92; O2SAT 93; BMI 19.8
--- NOTE | 2023-12-20 10:51 | HO.NEPHOV ---
Vital Signs 12/20/23 10:51 Height 6 ft 3 in Weight 158 lb 8 oz BMI 19.8 BP 128/80 Blood Pressure Location Lt brachial Position Sitting Pulse 92 Pulse Source Pulse Oximeter Pulse Oximetry (%) 93 Oxygen Delivery Method Room Air Intake Visit Reasons: Oct follow up/ Conf Consulting Technical Director Required: No Accompanied by: Self / Same As Patient Allergies No Known Allergies Allergy (Verified 12/20/23 10:53) HPI Comments Details: I had the privilege of seeing Tonny in follow up for proteinuria. He has hypertension over 30 years. He has been on medications. He checks blood pressure at home and claims it is under good control. He has had no blood pressure medication changes recently. He has not a diabetic. He has remote history of smoking. 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 He has history of excessive alcohol intake. He has remote history of using cocaine and had hepatitis C antibody positivity. Recently he was found to have protein in the urine. He had some weight loss which he is gaining back now. He has hearing issues as well as tinnitus and has hearing aids . He has no history of hematuria. He has history of prostate cancer in the past. He has dyslipidemia and was recently started on lipitor. He does not take excessive nonsteroidal anti-inflammatory medications. His serum creatinine has been stable. He denies any renal calculi, joint swellings, epistaxis, recurrent sinusitis or pedal edema. He denies taking excess sodium in the diet. He claims to be compliant with his medications. He is drinking excessively. His LFT's have started to become abnormal [facility] Medical History (Updated 11/15/23 @ 11:23 by Delisa Perkins PA-C) Tongue dysplasia Personal history of nicotine dependence Hepatitis C Elevated cholesterol HTN (hypertension) Mild ascending aorta dilatation Alcoholic peripheral neuropathy Surgical History History of right inguinal hernia repair History of left knee surgery History of surgery on lower extremity History of shoulder surgery History of hand surgery History of prostatectomy History of lumbar fusion Family History Maternal Uncle Substance use disorder Social History Housing: House Patient Tobacco Use Status: Current everyday Tobacco user Cigarettes Per Day: 5 Years Smoked: (onset 23yo, 1ppd x 38yrs, 35pyh - quit 01/2022) e-Cigarette/Vaping Use: Never Used Second Hand Smoke Exposure: No service: No Current occupational status: retired Hearing needs: Yes (hearing aides ) Vision needs: Yes (pt wears glasses ) Review of Systems Const All systems reviewed & are unremarkable except as noted in HPI and below Physical Exam Vital Signs: Last Vital Signs Pulse 92 12/20/23 10:51 BP 128/90 H 12/20/23 10:51 Pulse Ox 93 12/20/23 10:51 Oxygen Delivery Method Room Air 12/20/23 10:51 BMI result Body Mass Index 19.8 Const General: comfortable and no acute distress Orientation/consciousness: patient oriented x3 HEENT Head: Yes normocephalic Mouth: Normal oral and palatal mucosa present Eyes EOM: EOMs intact bilaterally Neck Neck: Yes supple Resp Auscultation: clear to auscultation bilaterally Cardio Jugular venous distension: no JVD Rate: regular rate GI Palpation (GI): Soft to palpation Auscultation: normal bowel sounds General: Yes no CVA tenderness Back/Spine/Pelvis Back: no CVA tenderness Skin General skin exam: no rashes or lesions noted Neuro General: patient oriented x3 and moves all extremities Extrem General: Yes no pedal edema Results Reviewed Nephrology Results: Hgb 9.8 g/dl (14.0-18.0) L 12/12/23 WBC 4.0 X10*3/uL (4.8-10.8) L 12/12/23 Plt Count 165 X10*3/uL (160-400) 12/12/23 Sodium 140 mmol/L (135-145) 12/12/23 Potassium 4.3 mmol/L (3.3-5.1) 12/12/23 Chloride 106 mmol/L (96-108) 12/12/23 Carbon Dioxide 30 mmol/L (22-29) H 12/12/23 BUN 11 mg/dL (9-16) 12/12/23 Creatinine 0.97 mg/dL (0.5-1.4) 12/12/23 Calcium 8.5 mg/dL (8.4-10.2) 12/12/23 Urine Protein 100 (2+) mg/dL (Neg-Trace) H 06/22/23 Renal US 07/22/23 Assessment & Plan Assessment & Plan (1) HTN (hypertension): Code(s): I10 - Essential (primary) hypertension Category: Medical Qualifiers: Hypertension type: primary hypertension Qualified Code(s): I10 - Essential (primary) hypertension (2) Proteinuria: Code(s): R80.9 - Proteinuria, unspecified Category: Medical Qualifiers: Proteinuria type: other Qualified Code(s): R80.8 - Other proteinuria Plan Tonny has longstanding hypertension. I discontinued his Amlodipine and increased his lisinopril to 5 mg which I plan to maximize with time . He had history of prostate cancer in the past and carcinoma in-situ recently for which he has undergone surgery. He has no history of hypercalcemia, renal dysfunction, retinopathy or pedal edema. He was found to have proteinuria recently. He has high IgA but his SPEP and urine immunofixation has been negative. No indication for renal biopsy now. I did not make any other medication changes today but explained all these in detail. I answered all his questions. Follow-up appointment given. Orders: Orders Blood Urea Nitrogen 3 Months R80.8 - Other proteinuria Protein Creatinine Ratio, Ur 3 Months R80.8 - Other proteinuria Creatinine 3 Months R80.8 - Other proteinuria Electrolytes 3 Months R80.8 - Other proteinuria Medications: Changed From lisinopril 2.5 mg PO DAILY 90 tabs 1RF To lisinopril 5 mg PO DAILY 90 days 90 tabs 3RF Discontinued amlodipine Discontinued Reason: Doctor's Order 10 mg PO DAILY 90 days 90 tabs 1RF Coding Level of Care Code Est Pt Level 4 (24983) Diagnoses Primary hypertension I10 Hypertension type: primary hypertension Other proteinuria R80.8 Proteinuria type: other
== END 2023-12-20 11:19 | disposition home or self-care (01) ==
PROVIDERS: PCP Nurse Practitioner Family; Visit Provider Internal Medicine Nephrology
DX: I10 Essential (primary) hypertension (principal); R80.8 Other proteinuria
CPT/HCPCS: 99214

== ENCOUNTER → 2023-12-20 10:46 | Outpatient (BNVA) | payer MEDICARE, SELFPAY | PROVIDERS: PCP Nurse Practitioner Family; Visit Provider Internal Medicine Nephrology | DX: I10 Essential (primary) hypertension (principal); R80.8 Other proteinuria | CPT/HCPCS: 99212 ==

== ENCOUNTER 2024-01-23 10:10 | Outpatient (AMB) | payer MEDICARE, SELFPAY ==
[2024-01-23 10:12] VITALS: BP 122/78; PULSE 82; O2SAT 96; BMI 20.2
--- NOTE | 2024-01-23 10:12 | MHC.PC.OV ---
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 by: Self / Same As Patient Allergies No Known Allergies Allergy (Verified 01/23/24 11:09) Medication List - Last Reconciled 01/23/24 by SELENE Small atorvastatin 10 mg PO BEDTIME 90 days fluticasone propionate 50 mcg/actuation (Flonase Allergy Relief) 1 spray intranasal DAILY PRN lisinopril 5 mg PO DAILY 90 days multivitamin (Daily Multi-Vitamin tablet) 1 tab PO DAILY 90 days pregabalin 75 mg PO TID 30 days sertraline 100 mg PO DAILY 90 days sildenafil 50 mg PO DAILY PRN Tobacco use date assessed: 07/25/23 Dental Screening Dental Screen Date: 07/25/23 HPI 6M F/U HPI Details HTN: Blood pressure is stable, managed with lisinopril 5mg. Denies chest pain, shortness of breath, headache, dizziness, and blurred vision. Pt c/o hearing loss in his right ear. Will refer for hearing screen. Pt has a hx of anemia (last CBC ordered by nephrology). Recent tongue lesions removed, skin grafting performed. Will continue to monitor. Denies dizziness, blood in stool, and hematuria. Pt has a hx of ETOH abuse. He continues to drink beer and hard liquor. He would not like any help with this, though he knows he should cut down on this. Will order labs. [facility] Medical History Tongue dysplasia Personal history of nicotine dependence Hepatitis C Elevated cholesterol HTN (hypertension) Mild ascending aorta dilatation Alcoholic peripheral neuropathy Surgical History History of right inguinal hernia repair History of left knee surgery History of surgery on lower extremity History of shoulder surgery History of hand surgery History of prostatectomy History of lumbar fusion Family History Maternal Uncle Substance use disorder Social History Housing: House Patient Tobacco Use Status: Current everyday Tobacco user Cigarettes Per Day: 5 Years Smoked: (onset 23yo, 1ppd x 38yrs, 35pyh - quit 01/2022) e-Cigarette/Vaping Use: Never Used Second Hand Smoke Exposure: No service: No Current occupational status: retired Cognitive needs: No Hearing needs: Yes (hearing aides ) Vision needs: Yes (pt wears glasses ) Questionnaire PHQ-9 Over the last 2 weeks, how often have you been bothered by any of the following problems? 1. Little interest or pleasure in doing things: not at all 2. Feeling down, depressed, or hopeless: not at all 3. Trouble falling or staying asleep, or sleeping too much: not at all 4. Feeling tired or having little energy: not at all 5. Poor appetite or overeating: not at all 6. Feeling bad about yourself - or that you are a failure or have let yourself or your family down: not at all 7. Trouble concentrating on things, such as reading the newspaper or watching television: not at all 8. Moving or speaking so slowly that other people could have noticed. Or the opposite - being so fidgety or restless that you have been moving around a lot more than usual: not at all 9. Thoughts that you would be better off or of hurting yourself in some way: not at all Total score: 0 Depression Screening Interpretation: Negative Depression Screening Done: Yes 34354 - PHQ-9 Billing: Yes Source: Developed by Drs. Horacio Yoder, Verona Adamson, Sawyer Garay and colleagues, with an educational dasia from [employer]. Thrive Questionnaire Date Thrive assessed: 01/23/24 I am a: Patient What is your living situation today?: I have a steady place to live Within the past 12 months, did the food you bought not last and you didn't have the money to get more?: Never true Within the past 12 months, did you worry whether your food would run out before you got money to buy more?: Sometimes True Do you have trouble paying for medicines?: No Do you have trouble getting transportation to medical appointments?: No Do you have trouble paying your heating and electricity bill?: No Do you have trouble taking care of your child, family member or friend?: I choose not to answer this question Do you have trouble with day-to-day activities such as bathing, preparing meals, shopping, managing finances, etc.?: No Are you currently unemployed and looking for a job?: I choose not to answer this question Are you interested in more education?: Yes Please select the resources that you would like help with: None Currently or been in a relationship where the following occur: Controlled Financially and Controlled Emotionally THRIVE Score: 3 AUDIT C Alcohol Use Questionnaire (AUDIT-C) 2. How many drinks containing alcohol do you have on a typical day when you are drinking?: 1 or 2 Total Score: 0 ARLENE-7 AMB Questionnaire ARLENE-7 Date ARLENE - 7 assessed: 01/23/24 Feeling nervous, anxious, or on edge: 0 = Not at all Not being able to stop or control worryin = Not at all Worrying too much about different things: 0 = Not at all Trouble relaxin = Not at all Being so restless that it is hard to sit still: 0 = Not at all Becoming easily annoyed or irritable: 0 = Not at all Feeling afraid as if something awful might happen: 3 = Nearly every day Total ARLENE-7 score (0-4 normal; 5-9 mild; 10-14 moderate; 15-21 severe): 3 Source: Developed by Drs. Horacio Yoder, Verona Adamson, Sawyer Garay and colleagues, with an educational dasia from [employer]. ARLENE-7 Assessment Billing ARLENE-7 Assessment Tool: ARLENE-7 Assessment 30276 Review of Systems Const Reports as per HPI Physical exam (Primary Care) Vital Signs: Last Vital Signs Pulse 82 01/23/24 10:12 BP 122/78 01/23/24 10:12 Pulse Ox 96 01/23/24 10:12 BMI result Body Mass Index 20.2 Tobacco/Smoking Status: Tobacco use Status Tobacco use date assessed 07/25/23 01/23/24 10:13 Patient Tobacco Use Status Current everyday Tobacco 01/23/24 10:13 e-Cigarette/Vaping Use Never Used 01/23/24 10:13 PHQ-9: PHQ-9 Score PHQ-9: Total score 0 11/18/24 10:42 Depression Screening Interpretation: Negative Thrive Assessment: Date of Thrive Assessment Date Thrive assessed 01/23/24 01/23/24 10:13 Currently or been in a relationship where the following occur: Controlled Financially and Controlled Emotionally Const Other: very skinny stature General: cooperative Orientation/consciousness: patient oriented x3 Resp Effort & Inspection: normal respiratory effort Auscultation: clear to auscultation bilaterally Cardio Rate: regular rate Rhythm: regular rhythm Heart sounds: S1 normal heart sound present and S2 normal heart sound present Neuro General: patient oriented x3 Extrem Right lower extremity: no edema Left lower extremity: no edema Psych Appearance: grossly normal Mental Status: mental status grossly normal Speech and movement: Normal speech and movement present Affect: normal affect Attitude: cooperative Thought process: Normal thought process present Thought content: Normal thought content present Insight: Good insight present (Psych) Judgement: Good judgement present (Psych) Coding Level of Care Code Est Pt Level 3 (45600) Diagnoses Loss of hearing H91.90 Anemia D64.9 ETOH abuse F10.10 Additional Codes ARLENE-7 Assessment Billing - ARLENE-7 Assessment Tool: ARLENE-7 Assessment 90964 ([id number]) PHQ-9 - 31485 - PHQ-9 Billing: Yes ([id number]) Assessment & Plan Assessment & Plan (1) Loss of hearing: Code(s): H91.90 - Unspecified hearing loss, unspecified ear Category: Medical Plan: Referred for hearing screen (2) Anemia: Code(s): D64.9 - Anemia, unspecified Category: Medical Plan: Labs ordered, asymptomatic (3) ETOH abuse: Code(s): F10.10 - Alcohol abuse, uncomplicated Category: Social Hx Plan: Labs ordered, encouraged to cut this down Plan The patient agreed to the use of a regional medical director for this encounter. Scribed for SELENE Hdez by Estrellita Mercedes regional medical director, on 01/23/2024 at 10:45 EST. Orders: Orders Complete Blood Count Auto Diff Today D64.9 - Anemia, unspecified, F10.10 - Alcohol abuse, uncomplicated Comprehensive Met. Panel Today D64.9 - Anemia, unspecified, F10.10 - Alcohol abuse, uncomplicated IRON PROFILE Today D64.9 - Anemia, unspecified, F10.10 - Alcohol abuse, uncomplicated Reticulocyte Count Today D64.9 - Anemia, unspecified Immunofixation Pnl, Serum Today D64.9 - Anemia, unspecified Protein Electrophoresis, Serum Today D64.9 - Anemia, unspecified Tick-borne Disease Molecular Today D64.9 - Anemia, unspecified Ferritin Today D64.9 - Anemia, unspecified, F10.10 - Alcohol abuse, uncomplicated Vitamin B12 and Folate Today D64.9 - Anemia, unspecified, F10.10 - Alcohol abuse, uncomplicated Hemoglobin Electrophoresis Today D64.9 - Anemia, unspecified HIV Ab/Ag Today D64.9 - Anemia, unspecified Referrals Speech and Hearing Referral H91.90 - Unspecified hearing loss, unspecified ear
== END 2024-01-23 11:00 | disposition home or self-care (01) ==
PROVIDERS: PCP Nurse Practitioner Family; Visit Provider Nurse Practitioner Family
DX: H91.90 Unspecified hearing loss, unspecified ear (principal); D64.9 Anemia, unspecified; F10.10 Alcohol abuse, uncomplicated

== ENCOUNTER → 2024-01-23 10:10 | Outpatient (BNVA) | payer MEDICARE, SELFPAY | PROVIDERS: PCP Nurse Practitioner Family; Visit Provider Nurse Practitioner Family | DX: H91.90 Unspecified hearing loss, unspecified ear (principal); D64.9 Anemia, unspecified; F10.10 Alcohol abuse, uncomplicated | CPT/HCPCS: 96127; 99212 ==

== ENCOUNTER 2024-02-09 10:12 | Outpatient (REF) | payer MEDICARE, SELFPAY | END 2024-02-09 10:13 | disposition home or self-care (01) | LOC: HO.SH 10:12 | PROVIDERS: Visit Provider Nurse Practitioner Family | DX: Z01.118 Encounter for examination of ears and hearing with other abnormal findings (principal); H90.3 Sensorineural hearing loss, bilateral | CPT/HCPCS: 92557; 92567 ==

== ENCOUNTER 2024-06-16 07:35 | Outpatient (REF) | payer MEDICARE, SELFPAY ==
[2024-06-16 11:23] LABS: Basophils Absolute Auto 0.1 X10*3/uL (0.0-0.2); Basophils Percent Auto 1.5 % (0-2); Eosinophils Absolute Auto 0.2 X10*3/uL (0.0-0.4); Hematocrit 36.1 % (42.0-52.0); Hemoglobin 12.3 g/dl (14.0-18.0); Imm Gran Abs Auto 0.01 X10*3/uL (0.00-0.03); Imm Gran Pct Auto 0.2 % (0.0-0.4); Immature Retic Fraction 9.3 % (2.3-13.4); Lymphocytes Absolute Auto 2.8 X10*3/uL (1.2-4.9); Lymphocytes Percent Auto 62.3 % (20-40); MANUAL DIFF FLAG SCAN; Mean Corpuscular HGB Conc 34.1 g/dl (31.0-36.0); Mean Corpuscular Volume 96.8 fL (80.0-98.0); Mean Platelet Volume 8.9 fL (9.4-12.4); Monocytes Absolute Auto 0.3 X10*3/uL (0.1-1.2); Monocytes Percent Auto 7.3 % (2-11); Neutrophils Absolute Auto 1.1 x10*3/uL (2.0-8.3); Neutrophils Percent Auto 24.7 % (45-73); Platelet Count 227 X10*3/uL (160-400); Red Blood Count 3.73 X10*6/uL (4.60-5.80); Red Cell Distribution Width 15.2 % (11.0-16.0); Retic HGB Equivalent 36.8 pg (30.0-35.0); Reticulocyte Percent 1.7 % (0.5-1.8); Reticulocytes Absolute 0.063 X10*6/uL (0.026-0.095); SCAN SMEAR FLAG 1; White Blood Count 4.5 X10*3/uL (4.8-10.8)
[2024-06-16 11:34] LABS: Alanine Aminotransferase 60 U/L (0-40); Albumin Level 3.7 g/dL (3.5-5.0); Alkaline Phosphatase 170 U/L (39-117); Anion Gap 13 (12-20); Aspartate Amino Transferase 187 U/L (5-37); Bilirubin Total 0.2 mg/dL (0.0-1.0); Blood Urea Nitrogen 10 mg/dL (9-16); Calcium 8.2 mg/dL (8.4-10.2); Carbon Dioxide 29 mmol/L (22-29); Chloride 108 mmol/L (96-108); Estimated Glomerular Filt Rate > 60; Glucose Random 92 mg/dL (60-115); Iron 75 mcg/dL (45-160); Percent Iron Saturation 30 % (15-50); Potassium 3.7 mmol/L (3.3-5.1); Sodium 146 mmol/L (135-145); Total Iron Binding Capacity 250 mcg/dL (228-428); Unsaturated Iron Binding 175 ug/dL
[2024-06-16 11:52] LABS: Creatinine Urine 130.36 mg/dL; Protein/Creatinine Ratio, Ur 0.16 (<0.2); SLIDE REVIEW VERIFIED; Total Protein Urine Random 21 mg/dL (<12)
[2024-06-16 12:06] LABS: Ferritin 152 ng/mL (20-250)
[2024-06-16 12:07] LABS: Folate 5.3 ng/mL (> or = 4.0); Vitamin B12 309 pg/mL (200-900)
[2024-06-18 08:32] LABS: HIV AB/AG Nonreactive (Nonreactive); HIV Num 1 0.06 S/CO (0.00-0.99)
[2024-06-18 14:04] LABS: Hematocrit 37.6 % (38.5-50.0); Hemoglobin 12.4 g/dL (13.2-17.1); MCH 32.5 pg (27.0-33.0); MCV 98.7 fL (80.0-100.0); RBC 3.81 Million/uL (4.20-5.80); RDW 14.8 % (11.0-15.0)
[2024-06-18 22:13] LABS: Prot Elec - Albumin 3.7 g/dL (3.8-4.8); Prot Elec - Alpha1 0.3 g/dL (0.2-0.3); Prot Elec - Alpha2 0.7 g/dL (0.5-0.9); Prot Elec - Beta 1 0.4 g/dL (0.4-0.6); Prot Elec - Beta 2 0.5 g/dL (0.2-0.5); Prot Elec - Gamma 1.1 g/dL (0.8-1.7); Prot Elec - Total Protein 6.7 g/dL (6.1-8.1)
[2024-06-19 00:10] LABS: A. Phagocytphilium DNA,RT-PCR NOT DETECTED (NOT DETECTED); Babesia Microti DNA, RT-PCR NOT DETECTED (NOT DETECTED); Borrelia Miyamotoi,DNA RT-PCR NOT DETECTED (NOT DETECTED); E.Chaffeensis DNA RT-PCR NOT DETECTED (NOT DETECTED); Lyme(Borrelia ssp)DNA RT-PCR NOT DETECTED (NOT DETECTED)
[2024-06-20 12:37] LABS: IgA 559 mg/dL (70-320); IgG 1365 mg/dL (600-1540); IgM 47 mg/dL (50-300)
== END 2024-06-16 07:36 | disposition home or self-care (01) ==
LOC: HO.HMGCLDS 07:35
PROVIDERS: PCP Nurse Practitioner Family; Visit Provider Internal Medicine Nephrology
DX: R80.8 Other proteinuria (principal); D64.9 Anemia, unspecified; F10.10 Alcohol abuse, uncomplicated
CPT/HCPCS: 36415; 80053; 82570; 82607; 82728; 82746; 82784; 83020; 83540; 84156; 84165; 85014; 85018; 85025; 85041; 85045; 86334; 87389; 87468; 87469; 87478; 87484; 87798

== ENCOUNTER 2024-07-23 09:59 | Outpatient (AMB) | payer MEDICARE, SELFPAY ==
[2024-07-23 10:02] VITALS: BP 120/77; PULSE 84; TEMP 36.9; O2SAT 96; BMI 20.1
--- NOTE | 2024-07-23 10:02 | MHC.PC.OV ---
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 by: Self / Same As Patient Allergies No Known Allergies Allergy (Verified 07/23/24 10:03) Medication List - Last Reconciled 07/23/24 by DANYEL Small-BRITT atorvastatin 10 mg PO BEDTIME 90 days fluticasone propionate 50 mcg/actuation (Flonase Allergy Relief) 1 spray intranasal DAILY PRN lisinopril 5 mg PO DAILY 90 days multivitamin (Daily Multi-Vitamin tablet) 1 tab PO DAILY 90 days pregabalin 75 mg PO TID 30 days sertraline 100 mg PO DAILY 90 days Tobacco use date assessed: 07/23/24 Fall risk assessment: No Falls in past year Last assessed Fall Risk: 07/23/24 Dental Screening Dental Screen Date: 07/23/24 Did you have a dental visit in the last 12 months?: Yes Did you have a dental problem in the last 6 months where you did not have access to dental care?: No Was dental information given to patient?: Patient has dentist HPI 6 months f/up HPI Details Chief Complaint Concerns regarding alcohol consumption and related health issues. History of Present Illness The patient is a 64-year-old male presenting with concerns related to alcohol use disorder. He reports daily consumption of one pint of anmol and additional beer, attributing recent bilateral tremors to his drinking. His blood work revealed elevated liver enzymes and lymphocytes. A repeat low-dose CAT scan is due (lungs), and he previously had a negative ultrasound in October 2021 of his abd. Social History - Recently underwent a divorce. - Lives with a dog. - Reports happiness despite personal stressors. - Consumes alcohol regularly (one pint of anmol and a couple of beers daily). Health Maintenance - Coordination for a repeat low-dose CAT scan discussed. - Blood work including CBC with elevated lymphocytes noted. Review of Systems - Constitutional: Reports doing well overall. - Respiratory: Denies shortness of breath, denies chest pain. - Gastrointestinal: Denies abdominal pain, denies blood in stool, denies constipation, denies diarrhea. - Neurological: Reports a bilateral tremor. Physical Exam General: Cooperative, healthy appearing, comfortable, no acute distress and well developed Orientation: Patient oriented x3 Limitations: No limitations Head: Normal to inspection Ears: Hearing grossly normal bilaterally Nose: Normal external nose present Face and sinus: Normal facial exam Eyes: Appearance normal, both eyes and all related structures Neck: Normal visual inspection and Yes full ROM Respiratory: Coarse wheezing noted bilaterally, diminished air movement Cardiovascular: Regular rate and rhythm. Normal S1 and S2. No carotid bruits noted GI: Normal to inspection. Soft to palpation and nontender Skin: No rashes or lesions noted Neuro: Patient oriented x3 Extremities: Tremor noted in bilateral extremities Results - Labs: Elevated lymphocytes, elevated liver enzymes. - Imaging: Ultrasound from October 2021 was negative. Plan I will refer the patient to addiction medicine to address alcohol use disorder. Coordination for a repeat low-dose CAT scan will occur, and blood work will be revisited next month. The elevated liver enzymes and lymphocytes suggest a potential link to alcohol consumption, necessitating monitoring. Further imaging may be considered, contingent on laboratory findings. Discussion Notes I discussed with the patient the implications of alcohol use disorder and the necessity of seeking addiction treatment. We reviewed the elevated liver enzymes and lymphocyte counts, which may be impacted by his drinking behavior. I explained the need for a repeat low-dose CAT scan and the unremarkable results from the previous ultrasound. The patient consented to future blood work follow-up, understanding the importance of managing these findings. We acknowledged recent personal challenges, emphasizing the support provided by addiction medicine. Patient Instructions - Reduce and ideally cease alcohol consumption. - Follow up with addiction medicine services. - Schedule and attend the repeat low-dose CAT scan. - Return for repeat blood work next month. - Monitor for any new or worsening symptoms. [facility] Medical History Tongue dysplasia Personal history of nicotine dependence Hepatitis C Elevated cholesterol HTN (hypertension) Mild ascending aorta dilatation Alcoholic peripheral neuropathy Surgical History History of right inguinal hernia repair History of left knee surgery History of surgery on lower extremity History of shoulder surgery History of hand surgery History of prostatectomy History of lumbar fusion Family History Maternal Uncle Substance use disorder Social History Housing: House Patient Tobacco Use Status: Current everyday Tobacco user Cigarettes Per Day: 5 Years Smoked: (onset 23yo, 1ppd x 38yrs, 35pyh - quit 01/2022) e-Cigarette/Vaping Use: Never Used Second Hand Smoke Exposure: No service: No Current occupational status: retired Cognitive needs: No Hearing needs: Yes (hearing aides ) Vision needs: Yes (pt wears glasses ) Questionnaire PHQ-9 Over the last 2 weeks, how often have you been bothered by any of the following problems? 1. Little interest or pleasure in doing things: several days 2. Feeling down, depressed, or hopeless: not at all 3. Trouble falling or staying asleep, or sleeping too much: not at all 4. Feeling tired or having little energy: not at all 5. Poor appetite or overeating: not at all 6. Feeling bad about yourself - or that you are a failure or have let yourself or your family down: not at all 7. Trouble concentrating on things, such as reading the newspaper or watching television: not at all 8. Moving or speaking so slowly that other people could have noticed. Or the opposite - being so fidgety or restless that you have been moving around a lot more than usual: not at all 9. Thoughts that you would be better off or of hurting yourself in some way: not at all Total score: 1 Depression Screening Interpretation: Negative Depression Screening Done: Yes 50272 - PHQ-9 Billing: Yes Source: Developed by Drs. Horacio Yoder, Verona Adamson, Sawyer Garay and colleagues, with an educational dasia from [employer]. Thrive Questionnaire Date Thrive assessed: 07/23/24 I am a: Patient What is your living situation today?: I have a steady place to live Within the past 12 months, did the food you bought not last and you didn't have the money to get more?: Never true Within the past 12 months, did you worry whether your food would run out before you got money to buy more?: Never true Do you have trouble paying for medicines?: No Do you have trouble getting transportation to medical appointments?: No Do you have trouble paying your heating and electricity bill?: No Do you have trouble taking care of your child, family member or friend?: No Do you have trouble with day-to-day activities such as bathing, preparing meals, shopping, managing finances, etc.?: No Are you currently unemployed and looking for a job?: No Are you interested in more education?: No Please select the resources that you would like help with: None Currently or been in a relationship where the following occur: No concerns reported THRIVE Score: 0 AUDIT C Alcohol Use Questionnaire (AUDIT-C) 1. How often do you have a drink containing alcohol?: 2-3 times a week 2. How many drinks containing alcohol do you have on a typical day when you are drinking?: 3 or 4 3. How often do you have six or more drinks on one occasion?: Less than monthly Total Score: 5 Score Reviewed/Action Taken: Yes ARLENE-7 AMB Questionnaire ARLENE-7 Date ARLENE - 7 assessed: 07/23/24 Feeling nervous, anxious, or on edge: 0 = Not at all Not being able to stop or control worryin = Not at all Worrying too much about different things: 0 = Not at all Trouble relaxin = Not at all Being so restless that it is hard to sit still: 0 = Not at all Becoming easily annoyed or irritable: 0 = Not at all Feeling afraid as if something awful might happen: 0 = Not at all Total ARLENE-7 score (0-4 normal; 5-9 mild; 10-14 moderate; 15-21 severe): 0 Source: Developed by Drs. Horacio Yoder, Verona Adamson, Sawyer Garay and colleagues, with an educational dasia from [employer]. ARLENE-7 Assessment Billing ARLENE-7 Assessment Tool: ARLENE-7 Assessment 81358 Physical exam (Primary Care) Tobacco/Smoking Status: Tobacco use Status Tobacco use date assessed 07/25/23 01/23/24 10:13 Patient Tobacco Use Status Current everyday Tobacco 01/23/24 10:13 e-Cigarette/Vaping Use Never Used 01/23/24 10:13 Depression Screening Interpretation: Negative Thrive Assessment: Date of Thrive Assessment Date Thrive assessed 01/20/24 06/12/24 15:20 Currently or been in a relationship where the following occur: No concerns reported Coding Level of Care Code Est Pt Level 3 (35282) Diagnoses ETOH abuse F10.10 Additional Codes ARLENE-7 Assessment Billing - ARLENE-7 Assessment Tool: ARLENE-7 Assessment 86742 ([id number]) PHQ-9 - 36295 - PHQ-9 Billing: Yes ([id number]) Assessment & Plan Assessment & Plan (1) ETOH abuse: Code(s): F10.10 - Alcohol abuse, uncomplicated Category: Social Hx Plan . Orders: Orders Complete Blood Count Auto Diff Today F10.10 - Alcohol abuse, uncomplicated TSH reflex Free T4 Today F10.10 - Alcohol abuse, uncomplicated UA CC w/rflx Micro + Cult Today F10.10 - Alcohol abuse, uncomplicated Vitamin B12 and Folate Today F10.10 - Alcohol abuse, uncomplicated Comprehensive [place]. Panel Fast Today F10.10 - Alcohol abuse, uncomplicated Lipid Panel Today F10.10 - Alcohol abuse, uncomplicated Referrals Addiction Medicine Referral F10.10 - Alcohol abuse, uncomplicated
== END 2024-07-23 11:32 | disposition home or self-care (01) ==
LOC: HO.HMCC 10:00
PROVIDERS: PCP Nurse Practitioner Family; Visit Provider Nurse Practitioner Family
DX: F10.10 Alcohol abuse, uncomplicated (principal)

== ENCOUNTER → 2024-07-23 09:59 | Outpatient (BNVA) | payer MEDICARE, SELFPAY | PROVIDERS: PCP Nurse Practitioner Family; Visit Provider Nurse Practitioner Family | DX: F10.10 Alcohol abuse, uncomplicated (principal) | CPT/HCPCS: 96127; 99212 ==

== ENCOUNTER 2024-09-06 10:18 | Outpatient (AMB) | payer MEDICARE, SELFPAY ==
[2024-09-06 10:22] VITALS: BP 104/74; PULSE 85; TEMP 36.7; O2SAT 96; BMI 19.4
--- NOTE | 2024-09-06 10:22 | A.OFFPC_ITS ---
Vital Signs 09/06/24 10:22 Height 6 ft 3 in Weight 155 lb BMI 19.4 BP 104/74 Blood Pressure Location Lt brachial Position Sitting Pulse 85 Pulse Source Pulse Oximeter Temp 98.0 F Temp Source Oral Pulse Oximetry (%) 96 Intake Visit Reasons: [facility] Locker Room Supervisor Required: No Accompanied by: Self / Same As Patient Allergies No Known Allergies Allergy (Verified 09/06/24 10:22) Tobacco use date assessed: 07/23/24 Fall risk assessment: No Falls in past year Last assessed Fall Risk: 09/06/24 Dental Screening Dental Screen Date: 07/23/24 HPI HPI Comments History of Present Illness Details Patient is a 64-year-old male with a past medical history of alcohol use disorder, hypertension, hyperlipidemia, tongue dysplasia and hepatitis C who went to the [facility] emergency department on August 21 after he fell and had witnessed head injury at the [employer] in [place]. Witnesses state that they thought he had a seizure and the patient had no prior history of seizures and that patient reported that he was still actively drinking in his last drink was the night before but he remembers falling and hitting his head. He did not have any incontinence. In the emergency department, he was alert and oriented his NIHSS was 0, he was well-appearing, physical exam was unremarkable, cranial nerves 2-12 were intact. They did labs and a head CT, the head CT was only notable for a left parietal scalp hematoma, his labs were relatively normal but he had some electrolyte abnormalities such as a low potassium at 3.2 in his magnesium was 1.1. They did do orthostatics and they were positive. His EKG was sinus tachycardia at 100 beats per minute, did not have any acute changes. It was felt he had a orthostatic syncopal episode with the dehydration and hypokalemia as well as hypomagnesemia. They watched him in the emergency department for several hours, they did not witness any repeat seizure activity so they discharged him home and he was told to follow up with his PCP and Neurology. They also gave him magnesium and potassium supplements to take d aily. Since his discharge, he has been taking his magnesium and potassium supplements daily. He does not have any episodes of passing out. He does mention that when he changes positions, sometimes he does get a little lightheaded. His vital signs are stable today. He has been trying to stay well hydrated. He is still drinking 1 pint of whiskey and a few beers per day, is still smoking 6 cigs per day. He is motivated to quit drinking and smoking. He tells me that he was looking for a referral to quit drinking but he never heard from anybody. He has done detox 3 times and he really does not want to go through it again. He is asking if there is a medication that can help him drink less. He is also asking for a Handicapped placard due to his neuropathy. [facility] Medical History Tongue dysplasia Personal history of nicotine dependence Hepatitis C Elevated cholesterol HTN (hypertension) Mild ascending aorta dilatation Alcoholic peripheral neuropathy Surgical History History of right inguinal hernia repair History of left knee surgery History of surgery on lower extremity History of shoulder surgery History of hand surgery History of prostatectomy History of lumbar fusion Family History Maternal Uncle Substance use disorder Social History Housing: House Patient Tobacco Use Status: Current everyday Tobacco user Cigarettes Per Day: 5 Years Smoked: (onset 23yo, 1ppd x 38yrs, 35pyh - quit 01/2022) Packs per year/per ci.00 e-Cigarette/Vaping Use: Never Used Second Hand Smoke Exposure: No service: No Current occupational status: retired Cognitive needs: No Hearing needs: Yes (hearing aides ) Vision needs: Yes (pt wears glasses ) Questionnaire Thrive Questionnaire Date Thrive assessed: 07/23/24 ARLENE-7 AMB Questionnaire ARLENE-7 Date ARLENE - 7 assessed: 07/23/24 Source: Developed by Drs. Horacio Yoder, Verona Adamson, Sawyer Garay and colleagues, with an educational dasia from [employer]. Review of Systems Const All systems reviewed & are unremarkable except as noted in HPI and below Physical exam (Primary Care) Vital Signs: Last Vital Signs Temp 98.0 F 09/06/24 10:22 Pulse 85 09/06/24 10:22 BP 104/74 09/06/24 10:22 Pulse Ox 96 07/03/25 10:22 BMI result Body Mass Index 19.4 Tobacco/Smoking Status: Tobacco use Status Tobacco use date assessed 07/23/24 09/06/24 10:23 Patient Tobacco Use Status Current everyday Tobacco 09/06/24 10:23 e-Cigarette/Vaping Use Never Used 09/06/24 10:23 Thrive Assessment: Date of Thrive Assessment Date Thrive assessed 07/23/24 09/06/24 10:23 Const General: cooperative, healthy appearing, comfortable and no acute distress Nutritional Appearance: thin Orientation/consciousness: patient oriented x3 Limitations: no limitations HENMT Head: Yes normal to inspection Ears: hearing grossly normal bilaterally General nose exam: Normal external nose present Face and sinus: Yes normal facial exam Eyes General: appearance normal, both eyes and all related structures Neck Neck: Yes normal visual inspection and Yes full ROM Resp Effort & Inspection: normal respiratory effort and able to speak in complete sentences Auscultation: clear to auscultation bilaterally Cardio Rate: regular rate Rhythm: regular rhythm Heart sounds: normal S1 and S2 Skin General skin exam: no rashes or lesions noted Neuro General: patient oriented x3 Extrem General: Yes normal to inspection Coding Level of Care Code Est Pt Level 5 (70536) Diagnoses Hypokalemia E87.6 Hypomagnesemia E83.42 Hospital discharge follow-up Z09 ETOH abuse F10.10 Personal history of nicotine dependence Z87.891 Assessment & Plan Assessment & Plan (1) Hypokalemia: Code(s): E87.6 - Hypokalemia Category: Medical Plan: We will repeat labs today, advised patient that based on the labs, we may adjust his supplements. (2) Hypomagnesemia: Code(s): E83.42 - Hypomagnesemia Category: Medical Plan: We will repeat labs today, advised patient that based on the labs, we may adjust his supplements. (3) Hospital discharge follow-up: Code(s): Z09 - Encounter for follow-up examination after completed treatment for condi tions other than malignant neoplasm Category: Medical Plan: Recommended patient continue to try to stay well hydrated, drinking lots of Gatorade and water and eating regularly. (4) ETOH abuse: Code(s): F10.10 - Alcohol abuse, uncomplicated Category: Social Hx Plan: Discussed with Jennifer, our community health worker in our office how the patient had a referral to addiction Medicine back in July but he has not heard from them. I did give the patient a print out of the referral and gave him the phone number to call but Jose said she will call over to try to get him scheduled. (5) Personal history of nicotine dependence: Comment: (former smoker - onset 23yo, 1ppd x 38yrs, 35pyh - quit 01/2022) Code(s): Z87.891 - Personal history of nicotine dependence Category: Medical Plan: Had our community health worker, Yuki, sit with the patient to offer different resources for quitting smoking, including our smoking cessation program. Orders: Orders Comprehensive Met. Panel Today E87.6 - Hypokalemia Magnesium Today E83.42 - Hypomagnesemia
== END 2024-09-06 11:25 | disposition home or self-care (01) ==
LOC: HO.HMCC 10:18
PROVIDERS: PCP Nurse Practitioner Family; Visit Provider Physician Assistant
DX: E87.6 Hypokalemia (principal); E83.42 Hypomagnesemia; Z09 Encounter for follow-up examination after completed treatment for conditions other than malignant neoplasm; F10.10 Alcohol abuse, uncomplicated; Z87.891 Personal history of nicotine dependence

== ENCOUNTER → 2024-09-06 10:18 | Outpatient (BNVA) | payer MEDICARE, SELFPAY | PROVIDERS: PCP Nurse Practitioner Family; Visit Provider Physician Assistant | DX: I10 Essential (primary) hypertension (principal); E78.5 Hyperlipidemia, unspecified; E87.6 Hypokalemia; E83.42 Hypomagnesemia; F10.10 Alcohol abuse, uncomplicated; F17.210 Nicotine dependence, cigarettes, uncomplicated; Z09 Encounter for follow-up examination after completed treatment for conditions other than malignant neoplasm; Z71.89 Other specified counseling | CPT/HCPCS: 99212 ==

== ENCOUNTER → 2024-09-12 09:52 | Outpatient (REF) | payer MEDICARE, SELFPAY ==
--- NOTE | 2024-09-12 09:55 | CA_ITS ---
Transthoracic Echocardiogram Patient (Last, First, Middle): Tonny French J Gender: Male Date of : 1960 Age: 64 Procedure Date: 09/12/2024 Procedure Type: Transthoracic Echocardiogram Location: OP Height: 190.5 cm Weight: 74.84 kg BSA: 2.02 m2 Heart Rate: bpm BP: 122 / 82 mmHg Roll Edge Stitcher Hand: TO Referring MD: Benji Leon [facility] Billing Analyst: Chung Atkinson MD Symptoms: R94.30 - Abnormal result of cardiovascular function study, unspecified Study Quality: Adequate ECG Rhythm: Sinus Conclusions: - 1. Low normal LV ejection fraction 50-55% 2. Trace to mild aortic regurgitation 3. Mildly dilated it ascending aorta at 3.8 cm 4. No gross pericardial effusion Findings Left Ventricle Normal left ventricular cavity size. There is normal left ventricular wall thickness. The left ventricular systolic function is low normal. The visually estimated ejection fraction is between 50-55%. Spectral Doppler is indicative of a normal filling pattern. Right Ventricle Normal right ventricular cavity size and systolic function. Atria The left atrium is normal in size. Interatrial shunt cannot be excluded. The right atrium is normal in size. Aortic Valve The aortic valve structure and function is likely normal. There is no aortic valve stenosis. There is mild aortic valve regurgitation. Mitral Valve Normal mitral valve structure and function. There is trace mitral valve regurgitation. There is no mitral valve stenosis. Pulmonic Valve The pulmonic valve was not well visualized. Tricuspid Valve Likely normal tricuspid valve structure and function. Tricuspid regurgitation envelope is inadequate for calculation of right ventricular systolic pressure. Normal right atrial pressure. Great Vessels The pulmonary artery was not well visualized. There is mild dilatation of the ascending aorta measuring 3.80 cm. Venous The inferior vena cava is normal in size and collapses greater than 50% with inspiration. Pericardium/Pleural There is no evidence of pericardial effusion. Prior Study Comparison Changes noted compared to prior study dated: 08/16/2023. LV ejection fraction has improved marginally. There was mild dilation of ascending aorta Measurements 2D Linear Measurements IVSd: 0.92 0.6-0.9/0.6-1.0 cm LVIDd: 4.14 3.9-5.3/4.2-5.9 cm LVIDd Index: 2.05 2.4-3.2/2.2-3.1 cm/m2 LVIDs: 3.49 2.0-3.6 cm LVPWd: 0.94 0.7-1.1 cm LA Diam: 2.30 2.7-3.8/3.0-4.0 cm LAIDs Index: 1.14 1.5-2.3 cm/m2 LV Mass: 150.96 67-162/88-224 g LV Mass Index: 74.73 43-95/49-115 g/m2 LVOT Diam: 2.20 3.0+(-)1.3 cm 2D Systolic Function EF 4C: 49.20 >55% EF 2C: 56.40 >55% EF BiP: 51.80 >55% Mitral Valve MV Pk E: 0.48 MV PK A: 0.59 MV Decel Time: 218.00 E/A: 0.80 E'Lateral: 7.29 E'Medial: 6.31 E/E' Med: 7.60 E/E' Lat: 6.60 PHT: 64.00 MVA PHT: 3.44 Decel Brooke: 2.21 Aortic Valve AoV Pk Marcos: 1.26 AoV Mn Marcos: 0.86 AoV VTI: 0.22 AoV Pk Grad: 6.00 Aov Mn Grad: 3.00 IMAN Cont.VTI: 3.31 LVOT LVOT Pk Marcos: 1.00 LVOT Mn Marcos: 0.65 LVOT VTI: 0.19 LVOT Pk Grad: 4.00 LVOT Mn Grad: 2.00 LVOT Diam: 2.20 LVOT Area: 3.80 Diastolic Function MV Pk E: 0.48 MV Pk A: 0.59 E/A: 0.80 E'Medial: 6.31 E/E' Med: 7.60 E' Laterial: 7.29 E/E' Lat: 6.60 Right Ventricle TAPSE (mm): 20.70 TVS' Marcos: 13.70 Tricuspid Valve RA Press: 3.00 Great Vessels Aorta Sinus of Valsalva: 3.43 2.0-3.5 cm Ao Asc: 3.80 2.1-3.4 cm Updated in Other Vendor System with Status of Final Chung Atkinson MD electronically signed on 09/13/2024 12:24:22 PM with status of Final
== END ==
LOC: HO.CARD 09:52
PROVIDERS: PCP Nurse Practitioner Family; Visit Provider Nurse Practitioner Family
DX: R94.30 Abnormal result of cardiovascular function study, unspecified (principal); F10.20 Alcohol dependence, uncomplicated
CPT/HCPCS: 93306; 99202

== ENCOUNTER → 2024-09-12 09:55 | Outpatient (BNV) | payer MEDICARE, SELFPAY | PROVIDERS: PCP Nurse Practitioner Family; Visit Provider Internal Medicine Cardiovascular Disease | DX: R94.30 Abnormal result of cardiovascular function study, unspecified (principal) | CPT/HCPCS: 93306 ==

== ENCOUNTER 2024-09-12 11:27 | Outpatient (AMB) | payer MEDICARE, SELFPAY ==
--- NOTE | 2024-09-12 11:28 | A.OFFVIS_ITS ---
Vital Signs 09/12/24 11:54 Height 6 ft 3 in Weight 159 lb BMI 19.9 BP 120/86 Blood Pressure Location Lt brachial Position Sitting Pulse 105 H Pulse Source Pulse Oximeter Pulse Oximetry (%) 98 Oxygen Delivery Method Room Air Intake Visit Reasons: MAT intake walk in Allergies No Known Allergies Allergy (Verified 09/12/24 11:55) Medication List - Last Reconciled 09/12/24 by DINORA Pitt atorvastatin 10 mg PO BEDTIME 90 days fluticasone propionate 50 mcg/actuation (Flonase Allergy Relief) 1 spray intranasal DAILY PRN lisinopril 5 mg PO DAILY 90 days magnesium oxide 400 mg PO DAILY multivitamin (Daily Multi-Vitamin tablet) 1 tab PO DAILY 90 days potassium chloride ER 20 mEq PO DAILY pregabalin 75 mg PO TID 30 days sertraline 100 mg PO DAILY 90 days sodium fluoride-pot nitrate 1.1-5 % dental DIRECTED HPI HPI MAT intake walk in: Details: The patient presents today as a walk-in after receiving a referral from primary care physician. Reports actively using alcohol on a daily basis and is looking to decrease and ultimately stop alcohol consumption. HPI Comments Details: The patient is a 64-year-old male who presents as a walk-in after being referred by primary care provider to get assistance with alcohol use disorder. Reports drinking a pint of anmol daily and 2-3 beers, several times per week. Has been to detox 3 times in the past and currently is not interested in going to a detox. Does report a history of seizures when stopping alcohol use. Education provided on the importance of attending an inpatient detox when ready to abstain from any alcohol use. Denies use of opiates, reports smoking half a pack of cigarettes per day and intermittent use of marijuana. Reports periods of sobriety, the longest was over 1 year. Relapsed on May 2024 after divorce became finalized from a 27 year marriage. Lives alone and has a Ballard dog. Acknowledges a support system of friends. [facility] Medical History Tongue dysplasia Personal history of nicotine dependence Hepatitis C Elevated cholesterol HTN (hypertension) Mild ascending aorta dilatation Alcoholic peripheral neuropathy Surgical History History of right inguinal hernia repair History of left knee surgery History of surgery on lower extremity History of shoulder surgery History of hand surgery History of prostatectomy History of lumbar fusion Family History Maternal Uncle Substance use disorder Social History Housing: House Patient Tobacco Use Status: Current everyday Tobacco user Cigarettes Per Day: 5 Years Smoked: (onset 23yo, 1ppd x 38yrs, 35pyh - quit 01/2022) e-Cigarette/Vaping Use: Never Used Second Hand Smoke Exposure: No service: No Current occupational status: retired Cognitive needs: No Hearing needs: Yes (hearing aides ) Vision needs: Yes (pt wears glasses ) Review of Systems Const All systems reviewed & are unremarkable except as noted in HPI and below Physical Exam Vital Signs: Last Vital Signs Pulse 105 H 09/12/24 11:54 BP 120/86 09/12/24 11:54 Pulse Ox 98 09/12/24 11:54 Oxygen Delivery Method Room Air 09/12/24 11:54 BMI result Body Mass Index 19.9 Const General: cooperative Nutritional Appearance: thin Orientation/consciousness: patient oriented x3 Limitations: no limitations HEENT Head: Yes normal to inspection Ears: hearing grossly normal bilaterally General nose exam: Normal external nose present Face and sinus: Yes normal facial exam Eyes General: appearance normal, both eyes and all related structures Eyelids: Yes eyelids normal Conjunctivae: conjunctivae normal Sclerae: sclerae normal Pupils: Equal, round and reactive pupils present Neck Neck: Yes normal visual inspection Resp Effort & Inspection: normal respiratory effort Auscultation: clear to auscultation bilaterally Cardio Rate: regular rate Rhythm: regular rhythm GI Inspection: Yes normal to inspection Skin General skin exam: no rashes or lesions noted Neuro General: patient oriented x3 Cranial nerves: Yes Equal, round and reactive pupils present Cognition (Neuro): normal cognition Psych Appearance: well kempt Speech and movement: Normal speech and movement present Affect: normal affect Attitude: cooperative Thought process: Normal thought process present Thought content: Normal thought content present Insight: Good insight present (Psych) Judgement: Good judgement present (Psych) Assessment & Plan Assessment & Plan (1) Alcohol use disorder, moderate, dependence: Code(s): F10.20 - Alcohol dependence, uncomplicated Category: Medical Plan The patient is to start on naltrexone 50 mg daily, thiamine 100 mg daily and folic acid 1 mg daily. Follow up on 09/17/24. Education provided re: purpose, side effects and general medication information. Education provided on the importance of attending an inpatient detox program when ready to abstain from alcohol use, currently the plan is to reduce the quantity of alcohol. Encouraged to call with question or to reports side effects. Education provided re: mental health services, patient declines. Orders: Orders Liver Panel Today F10.20 - Alcohol dependence, uncomplicated Medications: New naltrexone Start with 1/2 tablet for 3 days and then increase to one tablet daily. 50 mg PO DAILY 14 tabs 0RF thiamine mononitrate (vit B1) Take one tablet daily. 100 mg PO DAILY 30 tabs 0RF folic acid Take one tablet daily. 1 mg PO DAILY 30 tabs 0RF Patient Instructions: - Start naltrexone 50 mg, 1/2 tablet for 3 days then one tablet daily - Start thiamine 100 mg, one tablet daily. - Start folic acid 1 mg, one tablet daily - Follow up on 09/17/24 or sooner if needed - lab order for liver function panel - Call with with questions or to reports side effects Coding Level of Care Code New Pt New Pt Level 4 (00884) Patient Type New Medical Decision Making Moderate Complexity Diagnoses Alcohol use disorder, moderate, dependence F10.20 Time Spent (min) 45 Comment Chart prep, intake, education. MAT Intake Nursing Intake Reason for visit: MAT intake Are you currently using?: Yes What are you taking?: Alcohol When was your last use?: Today How much?: 1 nip What is your source of income?: Pension and Social Security Disability What is your current relationship status?: Divorce Date of last visit: A week ago Referral Source: Primary care physician Social History Domestic Violence concerns: None Children: None Do you have a support system?: Yes, friends Current mode of transportation?: Drives own car IV Drug Use Have you ever shared needles?: No Have you ever belonged to a needle exchange program?: No Recovery History Have you had any periods of recovery?: Yes (Over 1 year of sobriety from alcohol) When was the last time you were in recovery?: Relapsed on May 2024 Have you been in an inpatient detoxification program?: Yes (3 times in a detox program) Have you been in an outpatient Methadone Maintenance program?: No Have you been in an outpatient Suboxone Maintenance program?: No Have you been in an AA/NA support program?: Yes Have you had a Recovery Support Internetworking Technician?: Yes Have you had Peer Support?: Yes Behavioral Health History Do you have a current provider? If so, who?: No behavioral health provider diagnosis: No behavioral health diagnosis History of self harming thoughts?: No History of homicidal or suicidal intentions?: No Medical Conditions Endocarditis?: No Skin Infection: No Seizure related to withdrawal or overdose: Yes (Reports a history of seizures when detoxing from alcohol use) Head or brain injury: No Hepatitis A (if yes, have you been treated?): No Hepatitis B (if yes, have you been treated?): No Hepatitis C (if yes, have you been treated?): Yes (Reports successfully being treated approximately 8 years ago) HIV (if yes, have you been treated?): No TB (if yes, have you been treated?): No Other: No Legal History History of incarceration: No Currently on parole or probation: No Court mandated programs: No Pending court cases: No DCF involvement: No
[2024-09-12 11:54] VITALS: BP 120/86; PULSE 105; O2SAT 98; BMI 19.9
== END 2024-09-12 14:08 | disposition home or self-care (01) ==
LOC: HO.HCC 11:27
PROVIDERS: PCP Nurse Practitioner Family; Visit Provider Clinical Nurse Specialist Psychiatric/Mental Health
DX: F10.20 Alcohol dependence, uncomplicated (principal)
CPT/HCPCS: 99204

== ENCOUNTER 2024-09-13 08:06 | Outpatient (REF) | payer MEDICARE, SELFPAY ==
[2024-09-13 11:28] LABS: Alanine Aminotransferase 18 U/L (0-40); Albumin Level 3.7 g/dL (3.5-5.0); Alkaline Phosphatase 151 U/L (39-117); Anion Gap 11 (12-20); Aspartate Amino Transferase 39 U/L (5-37); Blood Urea Nitrogen 10 mg/dL (9-16); Calcium 8.6 mg/dL (8.4-10.2); Carbon Dioxide 27 mmol/L (22-29); Chloride 109 mmol/L (96-108); Estimated Glomerular Filt Rate > 60; Potassium 4.5 mmol/L (3.3-5.1); Sodium 142 mmol/L (135-145); Total Protein 7.2 g/dL (6.5-8.0)
[2024-09-13 11:40] LABS: Magnesium 1.4 mg/dL (1.6-2.6)
== END 2024-09-13 08:07 | disposition home or self-care (01) ==
LOC: HO.HMGCLDS 08:06
PROVIDERS: PCP Nurse Practitioner Family; Referring Provider Clinical Nurse Specialist Psychiatric/Mental Health; Visit Provider Nurse Practitioner Family
DX: F10.20 Alcohol dependence, uncomplicated (principal); E87.6 Hypokalemia; E83.42 Hypomagnesemia
CPT/HCPCS: 36415; 80053; 80076; 82248; 83735

== ENCOUNTER 2024-09-17 09:57 | Outpatient (AMB) | payer MEDICARE, SELFPAY ==
--- NOTE | 2024-09-17 09:58 | A.OFFVIS_ITS ---
Vital Signs 09/17/24 10:05 Height 6 ft 3 in Weight 160 lb BMI 20.0 BP 100/70 Blood Pressure Location Lt brachial Pulse 70 Pulse Source Pulse Oximeter Pulse Oximetry (%) 98 Oxygen Delivery Method Room Air Intake Visit Reasons: MAT VISIT Allergies No Known Allergies Allergy (Verified 09/17/24 10:06) HPI Comments Details: The patient is a 64-year-old male who has been actively managing alcohol use disorder, initially presenting with the goal of reducing intake to improve health. The patient commenced naltrexone 50 mg therapy, starting with a half tablet for three days and now taking a full dosage. He expresses satisfaction with the treatment, stating, I like it, and reports a significant reduction in alcohol consumption, mentioning a decrease from a pint to half a pint of anmol along with reduced beer consumption. Although not completely abstinent, he recognizes the importance of gradual reduction to prevent complications and is open to exploring support options like Alcoholics Anonymous meetings. [facility] Medical History Tongue dysplasia Personal history of nicotine dependence Hepatitis C Elevated cholesterol HTN (hypertension) Mild ascending aorta dilatation Alcoholic peripheral neuropathy Surgical History History of right inguinal hernia repair History of left knee surgery History of surgery on lower extremity History of shoulder surgery History of hand surgery History of prostatectomy History of lumbar fusion Family History Maternal Uncle Substance use disorder Social History Housing: House Patient Tobacco Use Status: Current everyday Tobacco user Cigarettes Per Day: 5 Years Smoked: (onset 23yo, 1ppd x 38yrs, 35pyh - quit 01/2022) e-Cigarette/Vaping Use: Never Used Second Hand Smoke Exposure: No service: No Current occupational status: retired Cognitive needs: No Hearing needs: Yes (hearing aides ) Vision needs: Yes (pt wears glasses ) Review of Systems Const All systems reviewed & are unremarkable except as noted in HPI and below Physical Exam Vital Signs: Last Vital Signs Pulse 70 09/17/24 10:05 BP 100/70 09/17/24 10:05 Pulse Ox 98 09/17/24 10:05 Oxygen Delivery Method Room Air 09/17/24 10:05 BMI result Body Mass Index 20.0 Const General: cooperative Psych Appearance: well kempt Mental Status: mental status grossly normal Speech and movement: Normal speech and movement present Affect: Labile affect present (Presents with euthymic affect) Attitude: cooperative Thought process: Normal thought process present Thought content: Normal thought content present (Denies suicidal or homicidal ideation.) Insight: Good insight present (Psych) Judgement: Good judgement present (Psych) Assessment & Plan Assessment & Plan (1) Alcohol use disorder, moderate, dependence: Code(s): F10.20 - Alcohol dependence, uncomplicated Category: Medical Plan The patient is on a naltrexone 50 mg, daily, showing a reduction in alcohol use. Initiated treatment at a half dosage, now transitioned to full tablet without complications. Plan includes maintaining treatment with ongoing evaluation. Explore support networks like AA. The patient reports there is an AA meeting near his home and is considering attending. Consider inpatient detox when ready to complete a full cessation. Mental health resources offered and patient declines. The patient is exploring dating online and is excited to potentially meet a woman who lives in [place]. Patient Instructions: - Continue taking naltrexone 50 mg, daily-as prescribed. - Monitor and report any side effects from medication to the [facility]. - Explore support groups like AA for additional social and community support. - Stay cautious in new social settings and meet publicly for safety. - Consider seeking help if decided to entirely stop alcohol usage to prevent withdrawal. - Maintain outdoor activities as positive engagement and coping mechanism. - Contact the provider if you have any new symptoms, concerns. - Follow up in one week or sooner, if needed. Scribe Plan - Not visible on output: Patient was informed and verbally consented to the use of an ambient scribe for clinical note documentation during this visit. Coding Level of Care Code Est Pt Level 3 (53138) Diagnoses Alcohol use disorder, moderate, dependence F10.20
[2024-09-17 10:05] VITALS: BP 100/70; PULSE 70; O2SAT 98
== END 2024-09-17 10:30 | disposition home or self-care (01) ==
LOC: HO.HCC 09:57
PROVIDERS: PCP Nurse Practitioner Family; Visit Provider Clinical Nurse Specialist Psychiatric/Mental Health
DX: F10.20 Alcohol dependence, uncomplicated (principal)
CPT/HCPCS: 99213

== ENCOUNTER → 2024-09-17 09:57 | Outpatient (BNVA) | payer MEDICARE, SELFPAY | PROVIDERS: PCP Nurse Practitioner Family; Visit Provider Clinical Nurse Specialist Psychiatric/Mental Health | DX: F10.20 Alcohol dependence, uncomplicated (principal) | CPT/HCPCS: 99212 ==

== ENCOUNTER 2024-09-24 09:55 | Outpatient (AMB) | payer MEDICARE, SELFPAY ==
--- NOTE | 2024-09-24 10:00 | A.OFFVIS_ITS ---
Vital Signs 09/24/24 10:01 Height 6 ft 3 in Weight 166 lb BMI 20.7 BP 126/74 Pulse 80 Pulse Oximetry (%) 94 Intake Visit Reasons: MAT Allergies No Known Allergies Allergy (Verified 09/24/24 10:02) HPI Comments Details: The patient is a 64-year-old male presenting for f/u of AUD. He has been making a conscious effort to decrease his alcohol consumption. Currently, he has reduced his hard liquor intake to roughly 2/3 of a pint, and beer consumption is capped at four per day, although this does not occur daily. Continues on naltrexone 50 mg daily. The patient reported having a fulfilling weekend, participating in multiple social activities such as a car show and a canine show. He expressed enjoyment and perceived value in these gatherings, indicating a positive mood with supportive human interactions. 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 Despite the absence of regular therapeutic intervention for mental health concerns, the patient declares his mental health as stable and good, mentioning interactions with friends that have been beneficial. The patient is planning a trip to [place], [place], to visit a friend, and he has expressed comfort and safety with the arrangements, hinting at a trusting relationship. He denies any suicidal or homicidal ideation. [facility] Medical History Tongue dysplasia Personal history of nicotine dependence Hepatitis C Elevated cholesterol HTN (hypertension) Mild ascending aorta dilatation Alcoholic peripheral neuropathy Surgical History History of right inguinal hernia repair History of left knee surgery History of surgery on lower extremity History of shoulder surgery History of hand surgery History of prostatectomy History of lumbar fusion Family History Maternal Uncle Substance use disorder Social History Housing: House Patient Tobacco Use Status: Current everyday Tobacco user Cigarettes Per Day: 5 Years Smoked: (onset 23yo, 1ppd x 38yrs, 35pyh - quit 01/2022) e-Cigarette/Vaping Use: Never Used Second Hand Smoke Exposure: No service: No Current occupational status: retired Cognitive needs: No Hearing needs: Yes (hearing aides ) Vision needs: Yes (pt wears glasses ) Review of Systems Const All systems reviewed & are unremarkable except as noted in HPI and below Physical Exam Vital Signs: Last Vital Signs Pulse 80 09/24/24 10:01 BP 126/74 09/24/24 10:01 Pulse Ox 94 09/24/24 10:01 BMI result Body Mass Index 20.7 Const General: cooperative Psych Appearance: well kempt Mental Status: mental status grossly normal Speech and movement: Normal speech and movement present Affect: normal affect (Bright mood) Attitude: cooperative Thought process: Normal thought process present Thought content: Normal thought content present Insight: Good insight present (Psych) Judgement: Good judgement present (Psych) Assessment & Plan Assessment & Plan (1) Alcohol use disorder, moderate, dependence: Code(s): F10.20 - Alcohol dependence, uncomplicated Category: Medical Plan The plan of care is continue with naltrexone tablets 50 mg daily and continue working towards actively reducing alcohol consumption. The patient was reminded if symptoms of withdrawal begin and or when ready to abstain from alcohol the plan is to enter into an inpatient detox program. Patient Instructions: - Continue with the current naltrexone 50 mg daily. - Maintain efforts to reduce alcohol intake. - Monitor progress in alcohol reduction and report any difficulties. - Consider additional options for support, such as recovery coaching or future AA meetings. - Follow up on October 08 or sooner, if needed. - Patient verbalize understanding and agreed with plan of care. Scribe Plan - Not visible on output: Patient was informed and verbally consented to the use of an ambient scribe for clinical note documentation during this visit. Coding Level of Care Code Est Pt Level 3 (19321) Diagnoses Alcohol use disorder, moderate, dependence F10.20
[2024-09-24 10:01] VITALS: BP 126/74; PULSE 80; O2SAT 94; BMI 20.7
== END 2024-09-24 10:29 | disposition home or self-care (01) ==
LOC: HO.HCC 09:56
PROVIDERS: PCP Nurse Practitioner Family; Visit Provider Clinical Nurse Specialist Psychiatric/Mental Health
DX: F10.20 Alcohol dependence, uncomplicated (principal)
CPT/HCPCS: 99213

== ENCOUNTER → 2024-09-24 09:55 | Outpatient (BNVA) | payer MEDICARE, SELFPAY | PROVIDERS: PCP Nurse Practitioner Family; Visit Provider Clinical Nurse Specialist Psychiatric/Mental Health | DX: F10.20 Alcohol dependence, uncomplicated (principal) | CPT/HCPCS: 99212 ==

== ENCOUNTER 2024-10-08 10:01 | Outpatient (AMB) | payer MEDICARE, SELFPAY ==
[2024-10-08 10:06] VITALS: BP 120/82; PULSE 60; O2SAT 96; BMI 20.5
--- NOTE | 2024-10-08 10:06 | MHC.OFFVIS ---
Vital Signs 10/08/24 10:06 Height 6 ft 3 in Weight 164 lb BMI 20.5 BP 120/82 Pulse 60 Pulse Oximetry (%) 96 Intake Visit Reasons: MAT Allergies No Known Allergies Allergy (Verified 10/08/24 10:08) Medication List - Last Reconciled 10/08/24 by DINORA Pitt fluticasone propionate 50 mcg/actuation (Flonase Allergy Relief) 1 spray intranasal DAILY PRN folic acid 1 mg PO DAILY lisinopril 5 mg PO DAILY 90 days magnesium oxide 400 mg PO DAILY multivitamin (Daily Multi-Vitamin tablet) 1 tab PO DAILY 90 days naltrexone 50 mg PO DAILY naltrexone microspheres ER (Vivitrol) 380 mg IM Q4W 28 days pregabalin 75 mg PO TID 30 days sertraline 100 mg PO DAILY 90 days sodium fluoride-pot nitrate 1.1-5 % dental DIRECTED tadalafil (Cialis) 5 mg PO DAILY PRN thiamine mononitrate (vit B1) 100 mg PO DAILY HPI Comments Details: A 64-year-old male presents for a follow-up visit related to alcohol use disorder, reports reduction of alcohol consumption, finds naltrexone tablets helpful at reducing cravings. Has abstain from alcohol consumption for the past 2 weeks with the exception of drinking this past Tuesday and Tuesday consisting of 2-3 beers due to feeling overwhelmed as he was stung several times by a bee hive while he was riding lawnmower and completing yard work. [facility] Medical History Tongue dysplasia Personal history of nicotine dependence Hepatitis C Elevated cholesterol HTN (hypertension) Mild ascending aorta dilatation Alcoholic peripheral neuropathy Surgical History History of right inguinal hernia repair History of left knee surgery History of surgery on lower extremity History of shoulder surgery History of hand surgery History of prostatectomy History of lumbar fusion Family History Maternal Uncle Substance use disorder Social History Housing: House Patient Tobacco Use Status: Current everyday Tobacco user Cigarettes Per Day: 5 Years Smoked: (onset 23yo, 1ppd x 38yrs, 35pyh - quit 01/2022) e-Cigarette/Vaping Use: Never Used Second Hand Smoke Exposure: No service: No Current occupational status: retired Cognitive needs: No Hearing needs: Yes (hearing aides ) Vision needs: Yes (pt wears glasses ) Review of Systems Const All systems reviewed & are unremarkable except as noted in HPI and below Physical Exam Vital Signs: Last Vital Signs Pulse 60 10/08/24 10:06 BP 120/82 10/08/24 10:06 Pulse Ox 96 10/08/24 10:06 BMI result Body Mass Index 20.5 Const General: cooperative Psych Appearance: well kempt Mental Status: mental status grossly normal Speech and movement: Normal speech and movement present Affect: normal affect Attitude: cooperative Thought content: Normal thought content present Insight: Good insight present (Psych) Judgement: Good judgement present (Psych) Assessment & Plan Assessment & Plan (1) Alcohol use disorder, moderate, dependence: Code(s): F10.20 - Alcohol dependence, uncomplicated Category: Medical Plan The plan of care is continue with naltrexone tablets 50 mg daily. Education provided re: Vivatrol and reports being interested to begin with long acting injectable as soon as possible. Encouraged to continue decreasing alcohol consumption, Vivitrol will be ordered. Liver panel labs ordered and Vivitrol phamplet provided along with additional education including side effects, purponse, and general medication information. Orders: Orders Liver Panel Today F10.20 - Alcohol dependence, uncomplicated Complete Blood Count Auto Diff Today F10.20 - Alcohol dependence, uncomplicated Basic Metabolic Panel Today F10.20 - Alcohol dependence, uncomplicated Medications: New naltrexone microspheres ER (Vivitrol) Administer IM Q 4 weeks in the gluteal muscle. 380 mg IM Q4W 1 ea 3RF Alcohol Use Disorder 28 days Patient Instructions: - Continue with naltrexone tablets 50 mg daily. - Vivitrol will be ordered. - Reduce alcohol consumption. - Complete ordered labs for live panel, CBC, and basic chem panel. - Follow up in three weeks or sooner, if needed. - The patient verbalized understanding and agreed with plan of care. Coding Level of Care Code Est Pt Level 3 (25986) Diagnoses Alcohol use disorder, moderate, dependence F10.20
== END 2024-10-08 10:37 | disposition home or self-care (01) ==
PROVIDERS: PCP Nurse Practitioner Family; Visit Provider Clinical Nurse Specialist Psychiatric/Mental Health
DX: F10.20 Alcohol dependence, uncomplicated (principal)
CPT/HCPCS: 99213

== ENCOUNTER → 2024-10-08 10:01 | Outpatient (BNVA) | payer MEDICARE, SELFPAY | PROVIDERS: PCP Nurse Practitioner Family; Visit Provider Clinical Nurse Specialist Psychiatric/Mental Health | DX: F10.20 Alcohol dependence, uncomplicated (principal) | CPT/HCPCS: 99212 ==

== ENCOUNTER 2024-10-29 11:18 | Outpatient (AMB) | payer MEDICARE, SELFPAY ==
[2024-10-29 11:37] VITALS: BP 132/74; PULSE 97; O2SAT 96; BMI 20.5
--- NOTE | 2024-10-29 11:37 | A.OFFVIS_ITS ---
Vital Signs 10/29/24 11:37 Height 6 ft 3 in Weight 164 lb BMI 20.5 BP 132/74 Pulse 97 Pulse Oximetry (%) 96 Intake Visit Reasons: MAT Allergies No Known Allergies Allergy (Verified 10/29/24 11:38) HPI Comments Details: A 64-year-old male presents for a follow-up visit r/t AUD. Reports taking naltrexone tablets 50 mg tablets on a daily basis and has decreased alcohol consumption from half a pint of anmol to 1/3 of anmol and continues when an average of 2 beers per day. Continue education provided regarding risk reduction activities, referral made to peer recovery and encouraged to attend AA meetings. [facility] Medical History Tongue dysplasia Personal history of nicotine dependence Hepatitis C Elevated cholesterol HTN (hypertension) Mild ascending aorta dilatation Alcoholic peripheral neuropathy Surgical History History of right inguinal hernia repair History of left knee surgery History of surgery on lower extremity History of shoulder surgery History of hand surgery History of prostatectomy History of lumbar fusion Family History Maternal Uncle Substance use disorder Social History Housing: House Patient Tobacco Use Status: Current everyday Tobacco user Cigarettes Per Day: 5 Years Smoked: (onset 23yo, 1ppd x 38yrs, 35pyh - quit 01/2022) e-Cigarette/Vaping Use: Never Used Second Hand Smoke Exposure: No service: No Current occupational status: retired Cognitive needs: No Hearing needs: Yes (hearing aides ) Vision needs: Yes (pt wears glasses ) Review of Systems Const All systems reviewed & are unremarkable except as noted in HPI and below Physical Exam Vital Signs: Last Vital Signs Pulse 97 10/29/24 11:37 BP 132/74 10/29/24 11:37 Pulse Ox 96 10/29/24 11:37 BMI result Body Mass Index 20.5 Const General: cooperative Assessment & Plan Assessment & Plan (1) Alcohol use disorder, moderate, dependence: Code(s): F10.20 - Alcohol dependence, uncomplicated Category: Medical Plan The plan of care is to continue on naltrexone tablets 50 mg daily, thiamine 100 mg daily, and folic acid 1 mg daily. Utilize risk reduction activities to minimize alcohol consumption and follow-up with attending AA meetings and connect with peer silver recovery operator upon receiving a phone call. Patient Instructions: - Continue with naltrexone, thiamine and folic acid prescribed. - utilize risk reduction activities minimize alcohol consumption. - attend AA meetings and follow-up with peer silver recovery operator upon receiving phone call. - Follow up in 1 month or sooner if needed. - Call with questions, concerns, or to report side effects/new onset of symptoms to [facility]. - The patient verbalized understanding and agreed with plan of care. Coding Level of Care Code Est Pt Level 3 (61693) Diagnoses Alcohol use disorder, moderate, dependence F10.20
== END 2024-10-29 11:58 | disposition home or self-care (01) ==
LOC: HO.HCC 11:18
PROVIDERS: PCP Nurse Practitioner Family; Visit Provider Clinical Nurse Specialist Psychiatric/Mental Health
DX: F10.20 Alcohol dependence, uncomplicated (principal)
CPT/HCPCS: 99213

== ENCOUNTER → 2024-10-29 11:18 | Outpatient (BNVA) | payer MEDICARE, SELFPAY | PROVIDERS: PCP Nurse Practitioner Family; Visit Provider Clinical Nurse Specialist Psychiatric/Mental Health | DX: F10.20 Alcohol dependence, uncomplicated (principal) | CPT/HCPCS: 99212 ==

== ENCOUNTER 2024-12-04 10:16 | Outpatient (AMB) | payer MEDICARE, SELFPAY ==
[2024-12-04 10:21] VITALS: BP 138/88; PULSE 110; O2SAT 96
--- NOTE | 2024-12-04 10:21 | A.OFFVIS_ITS ---
Vital Signs 12/04/24 10:21 BP 138/88 Pulse 110 H Pulse Oximetry (%) 96 Intake Visit Reasons: MAT Allergies No Known Allergies Allergy (Verified 12/04/24 10:22) HPI Comments Details: A 64-year-old male presents for a follow-up visit r/t AUD and reports making steady progress towards decreasing quantity of alcohol consumption currently down to consuming 1/3 of a pint of anmol per day down from 1 pint per day on September 2024. Denies use of opioids or other substances and continues with naltrexone tablets 50 mg daily. Reports recovering from a dental surgical procedure. Reports spending time preparing for the winter season by cutting and stocking wood. [facility] Medical History Tongue dysplasia Personal history of nicotine dependence Hepatitis C Elevated cholesterol HTN (hypertension) Mild ascending aorta dilatation Alcoholic peripheral neuropathy Surgical History History of right inguinal hernia repair History of left knee surgery History of surgery on lower extremity History of shoulder surgery History of hand surgery History of prostatectomy History of lumbar fusion Family History Maternal Uncle Substance use disorder Social History Housing: House Patient Tobacco Use Status: Current everyday Tobacco user Cigarettes Per Day: 5 Years Smoked: (onset 23yo, 1ppd x 38yrs, 35pyh - quit 01/2022) e-Cigarette/Vaping Use: Never Used Second Hand Smoke Exposure: No service: No Current occupational status: retired Cognitive needs: No Hearing needs: Yes (hearing aides ) Vision needs: Yes (pt wears glasses ) Physical Exam Vital Signs: Last Vital Signs Pulse 110 H 12/04/24 10:21 BP 138/88 12/04/24 10:21 Pulse Ox 96 12/04/24 10:21 Assessment & Plan Assessment & Plan (1) Alcohol use disorder, moderate, dependence: Code(s): F10.20 - Alcohol dependence, uncomplicated Category: Medical Plan The plan of care is to continue with naltrexone tablets 50 mg, thiamine, and folic acid daily. Education and community resources provided. Referral sent to [facility] for mental health services. Follow-up in 1 month or sooner if needed. Patient Instructions: - Continue with naltrexone, folic acid, and thiamine as prescribed. - Continue to practice risk reduction activities to minimize alcohol consumption. - Follow up in one month or sooner if needed. - Call with questions, concerns, or to report side effects/new onset of symptoms to [facility]. - The patient verbalized understanding and agreed with plan of care. Coding Level of Care Code Est Pt Level 3 (25327) Diagnoses Alcohol use disorder, moderate, dependence F10.20
== END 2024-12-04 10:48 | disposition home or self-care (01) ==
LOC: HO.HCC 10:16
PROVIDERS: PCP Nurse Practitioner Family; Visit Provider Clinical Nurse Specialist Psychiatric/Mental Health
DX: F10.20 Alcohol dependence, uncomplicated (principal)
CPT/HCPCS: 99213

== ENCOUNTER → 2024-12-04 10:16 | Outpatient (BNVA) | payer MEDICARE, SELFPAY | PROVIDERS: PCP Nurse Practitioner Family; Visit Provider Clinical Nurse Specialist Psychiatric/Mental Health | DX: F10.20 Alcohol dependence, uncomplicated (principal) | CPT/HCPCS: 99212 ==

== ENCOUNTER 2025-01-02 14:10 | Outpatient (AMB) | payer MEDICARE, SELFPAY ==
[2025-01-02 14:25] VITALS: BP 120/78; PULSE 85; RESP 14; O2SAT 96; BMI 20.2
--- NOTE | 2025-01-02 14:25 | A.OFFPC_ITS ---
Vital Signs 01/02/25 14:25 Height 6 ft 3 in Weight 162 lb BMI 20.2 BP 120/78 Blood Pressure Location Rt brachial Position Sitting Respiration 14 Pulse 85 Pulse Source Pulse Oximeter Pulse Oximetry (%) 96 Oxygen Delivery Method Room Air Intake Visit Reasons: Annual PE Cloth Layer Required: No Accompanied by: Self / Same As Patient Allergies No Known Allergies Allergy (Verified 01/02/25 14:28) Medication List - Last Reconciled 01/02/25 by DANYEL Small- amoxicillin 500 mg PO TID fluticasone propionate 50 mcg/actuation (Flonase Allergy Relief) 1 spray intranasal DAILY PRN folic acid 1 mg PO DAILY 90 days lisinopril 5 mg PO DAILY 90 days magnesium oxide 400 mg PO DAILY multivitamin (Daily Multi-Vitamin tablet) 1 tab PO DAILY 90 days naltrexone 50 mg PO DAILY 30 days naltrexone microspheres ER (Vivitrol) 380 mg IM Q4W 28 days pregabalin 75 mg PO TID 30 days sertraline 100 mg PO DAILY 90 days sodium fluoride-pot nitrate 1.1-5 % dental DIRECTED thiamine mononitrate (vit B1) 100 mg PO DAILY 90 days Tobacco use date assessed: 01/02/25 Fall risk assessment: 1 Fall in past year Last assessed Fall Risk: 01/02/25 Dental Screening Dental Screen Date: 01/02/25 Did you have a dental visit in the last 12 months?: Yes Did you have a dental problem in the last 6 months where you did not have access to dental care?: Yes Was dental information given to patient?: Patient has dentist HPI Annual PE HPI Details History of Present Illness The patient is a 64-year-old male presenting for a physical exam. He has a white lesion on the right sublingual papule and is scheduled for a biopsy in [place]. The patient continues to smoke and was previously part of a low-dose CT scan program. He also continues to consume alcohol and is working on this in a program. His Cologuard for colon cancer screening is noted as probably not up to date. Health Maintenance - The patient's Cologuard test is likely not current. - He was previously enrolled in a low-do se CT scan program. Social History - Tobacco use: The patient continues to smoke. - Alcohol use: The patient continues to drink alcohol and is enrolled in a program to address it. Review of Systems denies any CP, increased SOB, n/v/d, urinary issues, si or hi Physical Exam General: Cooperative, healthy appearing, comfortable, no acute distress and well developed Orientation: Patient oriented x3 Limitations: No limitations Head: Normal to inspection Ears: Hearing grossly normal bilaterally mouth: right sublingual papule with white lesion Nose: Normal external nose present Face and sinus: Normal facial exam Eyes: Appearance normal, both eyes and all related structures Neck: Normal visual inspection and Yes full ROM Respiratory: Normal respiratory effort and able to speak in complete sentences. Clear to auscultation bilaterally Cardiovascular: Regular rate and rhythm. Normal S1 and S2 GI: Normal to inspection. Soft to palpation and nontender : Testicles without masses/lesions and no hernias appreciated Skin: White lesion to the sublingual papula, right side Neuro: Patient oriented x3 Extremities: Normal to inspection Results Plan 1. Lesion Of Mouth A white lesion on the right sublingual papule was noted. The patient is already scheduled for a biopsy of this lesion in [place]. 2. Tobacco Use The patient continues to smoke and was previously in a low-dose CT scan program. The status of his participation in this program will be reviewed. 3. Alcohol Abuse The patient continues to consume alcohol but is already engaged in a program to address this. 4. Screening For Malignant Neoplasm Of C olon The patient's Cologuard status is noted as probably not up to date. Discussion Notes Patient Instructions [facility] Medical History Tongue dysplasia Personal history of nicotine dependence Hepatitis C Elevated cholesterol HTN (hypertension) Mild ascending aorta dilatation Alcoholic peripheral neuropathy Surgical History History of right inguinal hernia repair History of left knee surgery History of surgery on lower extremity History of shoulder surgery History of hand surgery History of prostatectomy History of lumbar fusion Family History Maternal Uncle Substance use disorder Social History Housing: House Patient Tobacco Use Status: Current everyday Tobacco user Cigarettes Per Day: 5 Years Smoked: (onset 23yo, 1ppd x 38yrs, 35pyh - quit 01/2022) e-Cigarette/Vaping Use: Never Used Second Hand Smoke Exposure: No service: No Current occupational status: retired Cognitive needs: No Hearing needs: Yes (hearing aides ) Vision needs: Yes (pt wears glasses ) Questionnaire PHQ-9 Over the last 2 weeks, how often have you been bothered by any of the following problems? 1. Little interest or pleasure in doing things: not at all 2. Feeling down, depressed, or hopeless: not at all 3. Trouble falling or staying asleep, or sleeping too much: not at all 4. Feeling tired or having little energy: not at all 5. Poor appetite or overeating: not at all 6. Feeling bad about yourself - or that you are a failure or have let yourself or your family down: not at all 7. Trouble concentrating on things, such as reading the newspaper or watching television: not at all 8. Moving or speaking so slowly that other people could have noticed. Or the opposite - being so fidgety or restless that you have been moving around a lot more than usual: not at all 9. Thoughts that you would be better off or of hurting yourself in some way: not at all Total score: 0 Depression Screening Interpretation: Negative Depression Screening Done: Yes 26345 - PHQ-9 Billing: Patient declined-do not bill Source: Developed by Drs. Horacio Yoder, Verona Adamson, Sawyer Garay and colleagues, with an educational dasia from [employer]. Thrive Questionnaire Date Thrive assessed: 07/23/24 I am a: Patient What is your living situation today?: I have a steady place to live Within the past 12 months, did the food you bought not last and you didn't have the money to get more?: Never true Within the past 12 months, did you worry whether your food would run out before you got money to buy more?: Never true Do you have trouble paying for medicines?: No Do you have trouble getting transportation to medical appointments?: No Do you have trouble paying your heating and electricity bill?: No Do you have trouble taking care of your child, family member or friend?: No Do you have trouble with day-to-day activities such as bathing, preparing meals, shopping, managing finances, etc.?: No Are you currently unemployed and looking for a job?: No Are you interested in more education?: No Please select the resources that you would like help with: None Currently or been in a relationship where the following occur: No concerns reported THRIVE Score: 0 ARLENE-7 AMB Questionnaire ARLENE-7 Date ARLENE - 7 assessed: 07/23/24 Feeling nervous, anxious, or on edge: 0 = Not at all Not being able to stop or control worryin = Not at all Worrying too much about different things: 0 = Not at all Trouble relaxin = Not at all Being so restless that it is hard to sit still: 0 = Not at all Becoming easily annoyed or irritable: 0 = Not at all Feeling afraid as if something awful might happen: 0 = Not at all Total ARLENE-7 score (0-4 normal; 5-9 mild; 10-14 moderate; 15-21 severe): 0 Source: Developed by Drs. Horacio Yoder, Verona Adamson, Sawyer Garay and colleagues, with an educational dasia from [employer]. ARLENE-7 Assessment Billing ARLENE-7 Assessment Tool: ARLENE-7 Assessment 45560 Physical exam (Primary Care) Vital Signs: Last Vital Signs Pulse 85 01/02/25 14:25 Resp 14 01/02/25 14:25 BP 120/78 01/02/25 14:25 Pulse Ox 96 01/02/25 14:25 Oxygen Delivery Method Room Air 01/02/25 14:25 BMI result Body Mass Index 20.2 Tobacco/Smoking Status: Tobacco use Status Tobacco use date assessed 01/02/25 01/02/25 14:32 Patient Tobacco Use Status Current everyday Tobacco 01/02/25 14:32 e-Cigarette/Vaping Use Never Used 01/02/25 14:32 PHQ-9: PHQ-9 Score PHQ-9: Total score 0 01/02/25 14:32 Depression Screening Interpretation: Negative Thrive Assessment: Date of Thrive Assessment Date Thrive assessed 07/23/24 01/02/25 14:32 Currently or been in a relationship where the following occur: No concerns reported Coding Level of Care Code Est Pt Prev Care 40-64y(15449) Diagnoses Encounter for routine adult physical exam with abnormal findings Z00.01 Vitamin D deficiency E55.9 Screening PSA (prostate specific antigen) Z12.5 ETOH abuse F10.10 Additional Codes ARLENE-7 Assessment Billing - ARLENE-7 Assessment Tool: ARLENE-7 Assessment 12132 ([id number]) Assessment & Plan Assessment & Plan (1) Encounter for routine adult physical exam with abnormal findings: Code(s): Z00.01 - Encounter for general adult medical examination with abnormal findings Category: Medical (2) Vitamin D deficiency: Code(s): E55.9 - Vitamin D deficiency, unspecified Category: Medical (3) Screening PSA (prostate specific antigen): Code(s): Z12.5 - Encounter for screening for malignant neoplasm of prostate Category: Medical (4) ETOH abuse: Code(s): F10.10 - Alcohol abuse, uncomplicated Category: Social Hx Plan . Orders: Orders Complete Blood Count Auto Diff Today Z00.01 - Encounter for general adult medical examination with abnormal findings Vitamin D 25-OH Total Today E55.9 - Vitamin D deficiency, unspecified Prostate Specific Antigen Scr Today Z12.5 - Encounter for screening for malignant neoplasm of prostate Vitamin B12 and Folate Today F10.10 - Alcohol abuse, uncomplicated Comprehensive Elizabeth. Panel Fast Today Z00. - Encounter for general adult medical examination with abnormal findings TSH reflex Free T4 Today Z00. - Encounter for general adult medical examination with abnormal findings UA CC w/rflx Micro + Cult Today Z00. - Encounter for general adult medical examination with abnormal findings Lipid Panel Today Z00.01 - Encounter for general adult medical examination with abnormal findings
== END 2025-01-02 15:08 | disposition home or self-care (01) ==
LOC: HO.HMCC 14:12
PROVIDERS: PCP Nurse Practitioner Family; Visit Provider Nurse Practitioner Family
DX: Z00.01 Encounter for general adult medical examination with abnormal findings (principal); E55.9 Vitamin D deficiency, unspecified; Z12.5 Encounter for screening for malignant neoplasm of prostate; F10.10 Alcohol abuse, uncomplicated

== ENCOUNTER → 2025-01-02 14:10 | Outpatient (BNVA) | payer MEDICARE, SELFPAY | PROVIDERS: PCP Nurse Practitioner Family; Visit Provider Nurse Practitioner Family | DX: Z00.01 Encounter for general adult medical examination with abnormal findings (principal); E55.9 Vitamin D deficiency, unspecified; F10.10 Alcohol abuse, uncomplicated | CPT/HCPCS: 96127; 99396 ==

== ENCOUNTER 2025-01-03 10:09 | Outpatient (AMB) | payer MEDICARE, SELFPAY ==
[2025-01-03 10:14] VITALS: BP 116/60; PULSE 80; O2SAT 92
--- NOTE | 2025-01-03 10:14 | MHC.OFFVIS ---
Vital Signs 01/03/25 10:14 BP 116/60 Pulse 80 Pulse Oximetry (%) 92 Intake Visit Reasons: MAT Allergies No Known Allergies Allergy (Verified 01/03/25 10:15) Medication List - Last Reconciled 01/03/25 by DINORA Pitt amoxicillin 500 mg PO TID fluticasone propionate 50 mcg/actuation (Flonase Allergy Relief) 1 spray intranasal DAILY PRN folic acid 1 mg PO DAILY 90 days lisinopril 5 mg PO DAILY 90 days magnesium oxide 400 mg PO DAILY multivitamin (Daily Multi-Vitamin tablet) 1 tab PO DAILY 90 days naltrexone 50 mg PO DAILY 30 days naltrexone microspheres ER (Vivitrol) 380 mg IM Q4W 28 days pregabalin 75 mg PO TID 30 days sertraline 100 mg PO DAILY 90 days sodium fluoride-pot nitrate 1.1-5 % dental DIRECTED thiamine mononitrate (vit B1) 100 mg PO DAILY 90 days HPI Comments Details: A 64-year-old male presents for a follow-up visit r/t AUD and continues to decrease the quantity of alcohol consumption and takes naltrexone; currently at 1/3 pint of anmol per day and 1 beer decreased from 3-4 beers per day and 1/2 pint of anmol. Engages in conversation regarding continuing the process for dental implants working on [employer] for the winter months. 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 REPLACED BY [facility] Medical History Alcohol use disorder, moderate, dependence Tongue dysplasia Personal history of nicotine dependence Hepatitis C Elevated cholesterol HTN (hypertension) Mild ascending aorta dilatation Alcoholic peripheral neuropathy Surgical History History of right inguinal hernia repair History of left knee surgery History of surgery on lower extremity History of shoulder surgery History of hand surgery History of prostatectomy History of lumbar fusion Family History Maternal Uncle Substance use disorder Social History Housing: House Patient Tobacco Use Status: Current everyday Tobacco user Cigarettes Per Day: 5 Years Smoked: (onset 23yo, 1ppd x 38yrs, 35pyh - quit 01/2022) e-Cigarette/Vaping Use: Never Used Second Hand Smoke Exposure: No service: No Current occupational status: retired Cognitive needs: No Hearing needs: Yes (hearing aides ) Vision needs: Yes (pt wears glasses ) Review of Systems Const All systems reviewed & are unremarkable except as noted in HPI and below Physical Exam Vital Signs: Last Vital Signs Pulse 80 01/03/25 10:14 BP 116/60 01/03/25 10:14 Pulse Ox 92 01/03/25 10:14 Const General: cooperative Assessment & Plan Assessment & Plan (1) Alcohol use disorder, moderate, dependence: Code(s): F10.20 - Alcohol dependence, uncomplicated Category: Medical Plan The plan of care is to continue with naltrexone tablets 50 mg, thiamine, and folic acid daily. Encouraged to continue with risk reduction activities to minimize consumption of alcohol and follow-up motor coach chauffeur. A referral was sent to [facility] for mental health services 1 month ago. Follow-up in 2 months or sooner if needed. Medications: Refilled naltrexone One tablet by mouth, daily. 50 mg PO DAILY 30 tabs 1RF 30 days Patient Instructions: - Continue with naltrexone, thiamine, and folic acid as prescribed. - Engage in risk reduction activities minimize consumption of alcohol. - Follow-up motor coach chauffeur. - Follow-up in 2 months or sooner if needed. - Call with questions, concerns, or to report side effects/new onset of symptoms to [facility]. - The patient verbalized understanding and agreed with plan of care. Coding Level of Care Code Est Pt Level 3 (61108) Diagnoses Alcohol use disorder, moderate, dependence F10.20
== END 2025-01-03 10:46 | disposition home or self-care (01) ==
PROVIDERS: PCP Nurse Practitioner Family; Visit Provider Clinical Nurse Specialist Psychiatric/Mental Health
DX: F10.20 Alcohol dependence, uncomplicated (principal)
CPT/HCPCS: 99213

== ENCOUNTER → 2025-01-03 10:09 | Outpatient (BNVA) | payer MEDICARE, SELFPAY | PROVIDERS: PCP Nurse Practitioner Family; Visit Provider Clinical Nurse Specialist Psychiatric/Mental Health | DX: F10.20 Alcohol dependence, uncomplicated (principal) | CPT/HCPCS: 99212 ==

== ENCOUNTER 2025-02-14 07:28 | Outpatient (REF) | payer MEDICARE, SELFPAY ==
[2025-02-14 10:22] LABS: MANUAL DIFF FLAG NO
[2025-02-14 10:26] LABS: Hematocrit 37.6 % (42.0-52.0); Hemoglobin 13.2 g/dl (14.0-18.0); Imm Gran Abs Auto 0.04 X10*3/uL (0.00-0.03); Imm Gran Pct Auto 0.5 % (0.0-0.4); Lymphocytes Absolute Auto 2.3 X10*3/uL (1.2-4.9); Mean Corpuscular HGB Conc 35.1 g/dl (31.0-36.0); Mean Corpuscular Hemoglobin 34.0 pg (27.0-33.0); Mean Corpuscular Volume 96.9 fL (80.0-98.0); NRBC Abs Auto 0.000 X10*3/uL (0.0-0.012); NRBC Pct Auto 0.0 /100WBC (0.0-0.2); Red Blood Count 3.88 X10*6/uL (4.60-5.80); White Blood Count 8.3 X10*3/uL (4.8-10.8)
[2025-02-14 10:40] LABS: Platelet Count 130 X10*3/uL (160-400)
[2025-02-14 11:08] LABS: Alanine Aminotransferase 37 U/L (0-40); Albumin Level 4.0 g/dL (3.5-5.0); Alkaline Phosphatase 149 U/L (39-117); Anion Gap 14 (12-20); Aspartate Amino Transferase 93 U/L (5-37); Blood Urea Nitrogen 10 mg/dL (9-16); Calcium 8.3 mg/dL (8.4-10.2); Carbon Dioxide 28 mmol/L (22-29); Chloride 99 mmol/L (96-108); Cholesterol 113 mg/dL (<200); Estimated Glomerular Filt Rate 56; HDL Cholesterol 39 mg/dL (>40); Potassium 3.1 mmol/L (3.3-5.1); Sodium 138 mmol/L (135-145); Total Protein 7.2 g/dL (6.5-8.0); Triglycerides 114 mg/dL (<150)
[2025-02-14 11:40] LABS: Folate 13.2 ng/mL (> or = 4.0); Vitamin B12 417 pg/mL (200-900)
== END 2025-02-14 07:29 | disposition home or self-care (01) ==
LOC: HO.HMGCLDS 07:28
PROVIDERS: PCP Nurse Practitioner Family; Visit Provider Nurse Practitioner Family
DX: Z00.00 Encounter for general adult medical examination without abnormal findings (principal); E55.9 Vitamin D deficiency, unspecified; F10.10 Alcohol abuse, uncomplicated; Z12.5 Encounter for screening for malignant neoplasm of prostate; Z13.29 Encounter for screening for other suspected endocrine disorder; Z13.6 Encounter for screening for cardiovascular disorders
CPT/HCPCS: 36415; 80053; 80061; 82306; 82607; 82746; 84153; 84443; 85025

== ENCOUNTER 2025-02-15 05:10 | Outpatient (REF) | payer MEDICARE, SELFPAY ==
[2025-02-15 14:20] LABS: Glucose Urine UA Negative (Negative); PH 6.0 (5.0-9.0); Specific Gravity - Urine 1.025 (1.005-1.025); UMIC TRIGGER UACC YES
[2025-02-15 14:22] LABS: Appearance Urine Turbid
[2025-02-15 14:39] LABS: UACC Culture Trigger YES
== END 2025-02-15 05:11 | disposition home or self-care (01) ==
LOC: HO.HMGCLNP 05:10
PROVIDERS: PCP Nurse Practitioner Family; Visit Provider Nurse Practitioner Family
DX: R31.29 Other microscopic hematuria (principal); Z87.891 Personal history of nicotine dependence
CPT/HCPCS: 81001; 81003; 87086